=== PATIENT | female | born 1960 | race Caucasian/White ===

== ENCOUNTER → 2017-11-04 | Outpatient (CLI) | payer MEDICARE ==
[~2017-11-04] MED LIST: Apixaban PO; CARDIZEM60 MG PO; DEPAKOTE500 MG PO; DIGOXIN125 MCG PO; DIVALPROEX SOD500 M1 PO; ESCITALOPRAM OX10 MG PO; HYDROCODONE PO; IBUPROFEN800 MG PO; KEPPRA500 MG PO; LASIX20 MG PO; LEVOTHROID50 MCG PO; LEVOTHYROXINE PO; LEVOTHYROXINE112 MCG PO; LEVOXYL137 MCG PO; LISINOPRIL10 MG PO; LOPRESSOR25 MG PO; NOVOLOG100 UNIT/4 SQ; POTASSIUM CHLO10 ME1 PO; PROAIR HFA INH8.5 GM INH; TOPIRAMATE50 MG PO; TYLENOL WITH C1 EACH PO; ULTRAM 50MG50 MG PO; VITAMIN B12 PO; Z DIVALPROEX SOD PO; Z.0.AMIODARONE HCL20 PO; Z.0.FUROSEMIDE20 MG PO; Z.1.ALPRAZOLAM0.25 M PO
--- NOTE | 2017-11-04 10:36 | Diagnostic Imaging Report ---
PROCEDURE: X-RAY CHEST, TWO VIEWS COMPARISON: None. INDICATIONS: RESPIRATORY INFECTION FINDINGS: LUNGS: No consolidations or edema. PLEURA: No effusions or pneumothorax. HEART \T\ MEDIASTINUM: The heart is within normal size-limits. Tortuous thoracic aorta. BONES \T\ SOFT TISSUES: No acute findings. CONCLUSION: No acute thoracic abnormality. Chaka Castillo D.O. Dictated by: Chaka Castillo D.O. on 11/04/2017 at 10:40 Electronically approved by: Chaka Castillo D.O. on 11/04/2017 at 10:40
--- NOTE | 2017-11-04 12:20 | Diagnostic Imaging Report ---
PROCEDURE:US RETROPERITONEAL ( KIDNEY ). COMPARISON:None. INDICATIONS:UTI, OVERACTIVE BLADDER TECHNIQUE: Duran-scale and color sonographic images of the bilateral kidneys and bladder where obtained in transverse and longitudinal planes. FINDINGS: RIGHT KIDNEY: 9.2 cm, cortex 1.3 cm Cysts: None Solid masses: None Stones: 1.2 x 0.5 x 1.0 cm hyperechoic cortical focus in the mid lateral aspect. Hydronephrosis: None. Mild pelvocaliectasis. Echogenicity: Normal LEFT KIDNEY: 10.0 cm, cortex 1.8 cm Cysts: None Solid masses: None Stones: None Hydronephrosis: Mild left hydronephrosis. Echogenicity: Normal Bladder: No focal lesions. Bilateral ureteral jets are identified. Mild circumferential bladder wall thickening, which measures 0.3 cm. Prevoid bladder volume 138.2 mL. Post void bladder volume 66.8 mL CONCLUSION: 1. Normal bilateral renal size and echogenicity. 2. Mild left hydronephrosis. Mild right pelvocaliectasis. 3. 1.2 cm hyperechoic focus in the right mid lateral cortex may represent a cortical calcification (likely sequela of prior inflammation or infection), rather than a nonobstructing calculus. 4. Mild circumferential bladder wall thickening. No focal lesions. Mild post void residual. Orville Scott M.D. Dictated by: Orville Scott M.D. on 11/04/2017 at 12:24 Electronically approved by: Orville Scott M.D. on 11/04/2017 at 12:24
--- NOTE | 2017-11-04 12:22 | Diagnostic Imaging Report ---
PROCEDURE:URINARY BLADDER ULTRASOUND COMPARISON:None. INDICATIONS:UTI, OVERACTIVE BLADDER CONCLUSION: Please refer to renal ultrasound performed at the same date and time for full dictated report. Orville Scott M.D. Dictated by: Orville Scott M.D. on 11/04/2017 at 12:26 Electronically approved by: Orville Scott M.D. on 11/04/2017 at 12:26
== END ==
LOC: US 09:44
PROVIDERS: ATTEND Family Medicine
DX: J06.9 Acute upper respiratory infection, unspecified (principal); N39.0 Urinary tract infection, site not specified; N32.81 Overactive bladder
CPT/HCPCS: 71046; 76770; 76857

== ENCOUNTER → 2018-06-03 | Outpatient (CLI) | payer MEDICARE ==
--- NOTE | 2018-06-03 16:40 | Diagnostic Imaging Report ---
Examination: CT head without contrast Clinical Indication: Fall with head injury. Technique: Transaxial noncontrast images from the skull base through the vertex were obtained. Sagittal and coronal reformatted images were done. Dose modulation, iterative reconstruction, and/or weight based adjustment of the mA/kV was utilized to reduce the radiation dose to as low as reasonably achievable. Comparison: Head CT performed March 25, 2013. Findings: Scalp: No abnormalities. Bones: Intact. No fractures. No blastic or lytic lesions. Hyperostosis frontalis. Brain sulci: Appropriate for patient's age. Ventricles: Normal in size and configuration. No hydrocephalus. . Extra-axial space: No abnormalities. Parenchyma: There are new mild patchy areas of low-attenuation within subcortical and periventricular white matter, nonspecific, but could represent microvascular ischemic disease. No masses, hemorrhage, or acute or chronic cortical based vascular insults. Suprasellar region: No abnormalities. Craniocervical junction: The foramen magnum is patent. No Chiari one malformation. Incidental findings: Opacified right sphenoid sinus with adjacent osteitis, consistent with chronic sinusitis. Impression: 1. No new acute intracranial finding when compared to prior head CT performed March 25, 2013. 2. New mild chronic microvascular ischemic change. Signed by: Dr. Coral Kennedy M.D. on 06/03/2018 4:37 PM
== END ==
LOC: CT 15:08
PROVIDERS: ATTEND Family Medicine
DX: S09.90XA Unspecified injury of head, initial encounter (principal); Z79.02 Long term (current) use of antithrombotics/antiplatelets
CPT/HCPCS: 70450

== ENCOUNTER → 2018-08-04 | Outpatient (CLI) | payer MEDICARE | LOC: RAD 12:12 | PROVIDERS: ATTEND Family Medicine | DX: I80.03 Phlebitis and thrombophlebitis of superficial vessels of lower extremities, bilateral (principal) | CPT/HCPCS: 93970 ==

== ENCOUNTER 2019-08-17 15:07 | Inpatient (IN) | payer MEDICARE ==
[~2019-08-17] VITALS: Ht 162.6 cm; Wt 135.2 kg
[2019-08-17] MEDS: VANCOMYCIN 1GM/NS 250 ML 250 ML IV SCH (02:00)
--- OUTSIDE RECORDS SUMMARY | 2019-08-17 15:12 | XMS REPORT ---
[facility] Address Unknown Phone Unavailable Care Team Providers Care Wellness Assistant Name Role Phone REYMUNDO POTTS Unavailable Unavailable Payers Payer Name Policy Type Policy Number Effective Date Expiration Date Problems This patient has no known problems. Allergies, Adverse Reactions, Alerts Allergy Name Allergy Type Status Severity Reaction(s) Onset Date Inactive Date Treating Clinician Comments Iodinated Contrast- Oral and IV Dye DA Active FL 2018-03-30 00:00:00 Penicillins DA Active FL 2018-03-30 00:00:00 Shellfish DA Active FL 2018-03-30 00:00:00 iodine DA Active FL 2018-03-30 00:00:00 Iodinated Contrast Media - IV Dye DA Active FL 2016-06-10 00:00:00 Penicillins DA Active FL 2016-06-10 00:00:00 Shellfish DA Active FL 2016-06-10 00:00:00 iodine DA Active FL 2016-06-10 00:00:00 Medications This patient has no known medications. Results Test Description Test Time Test Comments Text Results Atomic Results Result Comments GLUBED 2018-07-15 20:55:00 GLUBED (test code=GLUBED) 104 mg/dL 74-106 Performed by certified hack saw operator at [facility] [place] [id number] 16:52:00* Test Item Value Reference Range Comments GLUBED (test code=GLUBED) 161 mg/dL 74-106 Performed by certified hack saw operator at [facility] [place] [id number] 11:29:00* Test Item Value Reference Range Comments GLUBED (test code=GLUBED) 133 mg/dL 74-106 Performed by certified hack saw operator at [facility] [place] [id number] 07:37:00* Test Item Value Reference Range Comments GLUBED (test code=GLUBED) 75 mg/dL 74-106 Performed by certified hack saw operator at [facility] [place] [id number] 20:55:00* Test Item Value Reference Range Comments GLUBED (test code=GLUBED) 128 mg/dL 74-106 Performed by certified hack saw operator at [facility] [place] [id number] 16:44:00* Test Item Value Reference Range Comments GLUBED (test code=GLUBED) 84 mg/dL 74-106 Performed by certified hack saw operator at [facility] [place] [id number] 12:14:00* Test Item Value Reference Range Comments GLUBED (test code=GLUBED) 89 mg/dL 74-106 Performed by certified hack saw operator at [facility] [place] [id number] 07:23:00* Test Item Value Reference Range Comments GLUBED (test code=GLUBED) 76 mg/dL 74-106 Performed by certified hack saw operator at [facility] [place] [id number] 19:55:00* Test Item Value Reference Range Comments GLUBED (test code=GLUBED) 141 mg/dL 74-106 Performed by certified hack saw operator at [facility] [place] [id number] 19:17:00* Test Item Value Reference Range Comments GLUBED (test code=GLUBED) 145 mg/dL 74-106 Performed by certified hack saw operator at [facility] [place] [id number] 11:40:00* Test Item Value Reference Range Comments GLUBED (test code=GLUBED) 126 mg/dL 74-106 Performed by certified hack saw operator at [facility] [place] [id number] 07:37:00* Test Item Value Reference Range Comments GLUBED (test code=GLUBED) 90 mg/dL 74-106 Performed by certified hack saw operator at [facility] [place] [id number] 20:52:00* Test Item Value Reference Range Comments GLUBED (test code=GLUBED) 106 mg/dL 74-106 Performed by certified hack saw operator at [facility] [place] [id number] 16:49:00* Test Item Value Reference Range Comments GLUBED (test code=GLUBED) 147 mg/dL 74-106 Performed by certified hack saw operator at [facility] [place] [id number] 10:58:00* Test Item Value Reference Range Comments GLUBED (test code=GLUBED) 126 mg/dL 74-106 Performed by certified hack saw operator at [facility] [place] COMPREHENSIVE METABOLIC [id number] 10:36:00* Test Item Value Reference Range Comments SODIUM (test code=NA) 139 mmol/L 136-145 POTASSIUM (test code=K) 4.7 mmol/L 3.5-5.1 CHLORIDE (test code=CL) 112.0 mmol/L 98-107 CARBON DIOXIDE (test code=CO2) 22.0 mmol/L 21-32 ANION GAP (test code=GAP) 9.7 10-20 GLUCOSE (test code=GLU) 99 mg/dL 74-106 BLOOD UREA NITROGEN (test code=BUN) 10 mg/dL 7-18 GLOMERULAR FILTRATION RATE (test code=GFR) > 60 mL/min >=60 Estimated GFR by using Modified MDRD formula.Chronic kidney disease is defined as either kidney damageor GFR <60 mL/min/1.73 m2 for >3 months. CREATININE (test code=CREAT) 0.80 mg/dL 0.55-1.02 Note change in reference range due to change in reagent. BUN/CREATININE RATIO (test code=BUN/CREA) 12.5 10-20 TOTAL PROTEIN (test code=PROT) 5.6 gram/dL 6.4-8.2 ALBUMIN (test code=ALB) 1.6 g/dL 3.4-5.0 GLOBULIN (test code=GLOB) 4.0 gram/dL 2.7-4.2 ALBUMIN/GLOBULIN RATIO (test code=A/G) 0.4 0.75-1.50 CALCIUM (test code=CA) 8.0 mg/dL 8.5-10.1 BILIRUBIN TOTAL (test code=BILT) 0.60 mg/dL 0.0-1.0 SGOT/AST (test code=AST) 23 IUnit/L 15-37 SGPT/ALT (test code=ALT) 18 IUnit/L 12-78 ALKALINE PHOSPHATASE TOTAL (test code=ALKP) 67 IUnit/L 45-117 Note change in reference range due to change in reagent. [id number] 10:36:00* Test Item Value Reference Range Comments MAGNESIUM (test code=MAG) 2.2 mg/dL 1.8-2.4 COMPREHENSIVE METABOLIC [id number] 10:22:00* Test Item Value Reference Range Comments SODIUM (test code=NA) 139 mmol/L 136-145 POTASSIUM (test code=K) 4.7 mmol/L 3.5-5.1 CHLORIDE (test code=CL) 112.0 mmol/L 98-107 CARBON DIOXIDE (test code=CO2) mmol/L 21-32 ANION GAP (test code=GAP) 10-20 GLUCOSE (test code=GLU) mg/dL 74-106 BLOOD UREA NITROGEN (test code=BUN) mg/dL 7-18 GLOMERULAR FILTRATION RATE (test code=GFR) mL/min >=60 CREATININE (test code=CREAT) mg/dL 0.55-1.02 BUN/CREATININE RATIO (test code=BUN/CREA) 10-20 TOTAL PROTEIN (test code=PROT) gram/dL 6.4-8.2 ALBUMIN (test code=ALB) g/dL 3.4-5.0 GLOBULIN (test code=GLOB) gram/dL 2.7-4.2 ALBUMIN/GLOBULIN RATIO (test code=A/G) 0.75-1.50 CALCIUM (test code=CA) mg/dL 8.5-10.1 BILIRUBIN TOTAL (test code=BILT) mg/dL 0.0-1.0 SGOT/AST (test code=AST) IUnit/L 15-37 SGPT/ALT (test code=ALT) IUnit/L 12-78 ALKALINE PHOSPHATASE TOTAL (test code=ALKP) IUnit/L 45-117 [id number] 10:22:00* Test Item Value Reference Range Comments MAGNESIUM (test code=MAG) mg/dL 1.8-2.4 CBC W/AUTO [id number] 09:52:00* Test Item Value Reference Range Comments WHITE BLOOD CELL (test code=WBC) 5.0 K/mm3 4.5-12.5 RED BLOOD CELL (test code=RBC) 3.71 mill/mm3 3.7-5.2 HEMOGLOBIN (test code=HGB) 12.1 gram/dL 11.5-15.5 HEMATOCRIT (test code=HCT) 39.4 % 36.0-46.0 MEAN CELL VOLUME (test code=MCV) 107.0 fL 80-98 MEAN CELL HGB (test code=MCH) 33.4 picogram 27.0-33.0 MEAN CELL HGB CONCETRATION (test code=MCHC) 31.2 gram/dL 33.0-36.0 RED CELL DISTRIBUTION WIDTH (test code=RDW) 15.8 % 11.6-16.2 RED CELL DISTRIBUTION WIDTH SD (test code=RDW-SD) 62.5 fL 37.0-51.0 PLATELET COUNT (test code=PLT) 102 K/mm3 150-450 MEAN PLATELET VOLUME (test code=MPV) 10.6 fL 6.7-11.0 NEUTROPHIL % (test code=NT%) 44.1 % 39.0-69.0 IMMATURE GRANULOCYTE % (test code=IG%) 1.0 % 0.0-5.0 LYMPHOCYTE % (test code=LY%) 42.8 % 25.0-55.0 MONOCYTE % (test code=MO%) 9.5 % 0.0-10.0 EOSINOPHIL % (test code=EO%) 2.2 % 0.0-5.0 BASOPHIL % (test code=BA%) 0.4 % 0.0-1.0 NUCLEATED RBC % (test code=NRBC%) 0.0 % 0-0 NEUTROPHIL # (test code=NT#) 2.18 K/mm3 1.8-7.7 IMMATURE GRANULOCYTE # (test code=IG#) 0.05 x10 3/uL 0-0.03 LYMPHOCYTE # (test code=LY#) 2.12 K/mm3 1.0-5.0 MONOCYTE # (test code=MO#) 0.47 K/mm3 0-0.8 EOSINOPHIL # (test code=EO#) 0.11 K/mm3 0.0-0.5 BASOPHIL # (test code=BA#) 0.02 K/mm3 0.0-0.2 NUCLEATED RBC # (test code=NRBC#) 0.00 K/mm3 0.0-0.1 MANUAL DIFF REQUIRED (test code=MDIFF) NO CBC W/AUTO [id number] 09:49:00* Test Item Value Reference Range Comments WHITE BLOOD CELL (test code=WBC) K/mm3 4.5-12.5 RED BLOOD CELL (test code=RBC) mill/mm3 3.7-5.2 HEMOGLOBIN (test code=HGB) 12.1 gram/dL 11.5-15.5 HEMATOCRIT (test code=HCT) 39.4 % 36.0-46.0 MEAN CELL VOLUME (test code=MCV) fL 80-98 MEAN CELL HGB (test code=MCH) picogram 27.0-33.0 MEAN CELL HGB CONCETRATION (test code=MCHC) gram/dL 33.0-36.0 RED CELL DISTRIBUTION WIDTH (test code=RDW) % 11.6-16.2 RED CELL DISTRIBUTION WIDTH SD (test code=RDW-SD) fL 37.0-51.0 PLATELET COUNT (test code=PLT) K/mm3 150-450 MEAN PLATELET VOLUME (test code=MPV) fL 6.7-11.0 NEUTROPHIL % (test code=NT%) % 39.0-69.0 IMMATURE GRANULOCYTE % (test code=IG%) % 0.0-5.0 LYMPHOCYTE % (test code=LY%) % 25.0-55.0 MONOCYTE % (test code=MO%) % 0.0-10.0 EOSINOPHIL % (test code=EO%) % 0.0-5.0 BASOPHIL % (test code=BA%) % 0.0-1.0 NEUTROPHIL # (test code=NT#) K/mm3 1.8-7.7 LYMPHOCYTE # (test code=LY#) K/mm3 1.0-5.0 MONOCYTE # (test code=MO#) K/mm3 0-0.8 EOSINOPHIL # (test code=EO#) K/mm3 0.0-0.5 BASOPHIL # (test code=BA#) K/mm3 0.0-0.2 [id number] 07:32:00* Test Item Value Reference Range Comments GLUBED (test code=GLUBED) 78 mg/dL 74-106 Performed by certified hack saw operator at [facility] [place] [id number] 21:00:00* Test Item Value Reference Range Comments GLUBED (test code=GLUBED) 151 mg/dL 74-106 Performed by certified hack saw operator at [facility] [place] [id number] 16:35:00* Test Item Value Reference Range Comments GLUBED (test code=GLUBED) 91 mg/dL 74-106 Performed by certified hack saw operator at [facility] [place] [id number] 11:43:00* Test Item Value Reference Range Comments GLUBED (test code=GLUBED) 101 mg/dL 74-106 Performed by certified hack saw operator at [facility] [place] CBC W/AUTO [id number] 10:25:00* Test Item Value Reference Range Comments WHITE BLOOD CELL (test code=WBC) 4.3 K/mm3 4.5-12.5 RED BLOOD CELL (test code=RBC) 3.64 mill/mm3 3.7-5.2 HEMOGLOBIN (test code=HGB) 12.1 gram/dL 11.5-15.5 HEMATOCRIT (test code=HCT) 38.9 % 36.0-46.0 MEAN CELL VOLUME (test code=MCV) 106.9 fL 80-98 MEAN CELL HGB (test code=MCH) 33.2 picogram 27.0-33.0 MEAN CELL HGB CONCETRATION (test code=MCHC) 31.1 gram/dL 33.0-36.0 RED CELL DISTRIBUTION WIDTH (test code=RDW) 15.5 % 11.6-16.2 RED CELL DISTRIBUTION WIDTH SD (test code=RDW-SD) 61.5 fL 37.0-51.0 PLATELET COUNT (test code=PLT) 87 K/mm3 150-450 MEAN PLATELET VOLUME (test code=MPV) 10.1 fL 6.7-11.0 NEUTROPHIL % (test code=NT%) 41.8 % 39.0-69.0 IMMATURE GRANULOCYTE % (test code=IG%) 1.6 % 0.0-5.0 LYMPHOCYTE % (test code=LY%) 42.3 % 25.0-55.0 MONOCYTE % (test code=MO%) 11.3 % 0.0-10.0 EOSINOPHIL % (test code=EO%) 2.3 % 0.0-5.0 BASOPHIL % (test code=BA%) 0.7 % 0.0-1.0 NUCLEATED RBC % (test code=NRBC%) 0.0 % 0-0 NEUTROPHIL # (test code=NT#) 1.81 K/mm3 1.8-7.7 IMMATURE GRANULOCYTE # (test code=IG#) 0.07 x10 3/uL 0-0.03 LYMPHOCYTE # (test code=LY#) 1.83 K/mm3 1.0-5.0 MONOCYTE # (test code=MO#) 0.49 K/mm3 0-0.8 EOSINOPHIL # (test code=EO#) 0.10 K/mm3 0.0-0.5 BASOPHIL # (test code=BA#) 0.03 K/mm3 0.0-0.2 NUCLEATED RBC # (test code=NRBC#) 0.00 K/mm3 0.0-0.1 MANUAL DIFF REQUIRED (test code=MDIFF) NO, ONLY SCAN NEEDED DIFFERENTIAL [id number] 10:25:00* Test Item Value Reference Range Comments STAIN ACCEPTABILITY (test code=STN ACCEPTABLE) STAIN ACCEPTABLE ANISOCYTOSIS (test code=ANISO) 1+ MACROCYTOSIS (test code=MACR) 1+ PLATELET ESTIMATE (test code=PLTEST) DECREASED PLATELET MORPHOLOGY (test code=PLTMORPH) CLUMPING PRESENT CBC W/AUTO [id number] 08:50:00* Test Item Value Reference Range Comments WHITE BLOOD CELL (test code=WBC) 4.3 K/mm3 4.5-12.5 RED BLOOD CELL (test code=RBC) 3.64 mill/mm3 3.7-5.2 HEMOGLOBIN (test code=HGB) 12.1 gram/dL 11.5-15.5 HEMATOCRIT (test code=HCT) 38.9 % 36.0-46.0 MEAN CELL VOLUME (test code=MCV) 106.9 fL 80-98 MEAN CELL HGB (test code=MCH) 33.2 picogram 27.0-33.0 MEAN CELL HGB CONCETRATION (test code=MCHC) 31.1 gram/dL 33.0-36.0 RED CELL DISTRIBUTION WIDTH (test code=RDW) 15.5 % 11.6-16.2 RED CELL DISTRIBUTION WIDTH SD (test code=RDW-SD) 61.5 fL 37.0-51.0 PLATELET COUNT (test code=PLT) 87 K/mm3 150-450 MEAN PLATELET VOLUME (test code=MPV) 10.1 fL 6.7-11.0 NEUTROPHIL % (test code=NT%) 41.8 % 39.0-69.0 IMMATURE GRANULOCYTE % (test code=IG%) 1.6 % 0.0-5.0 LYMPHOCYTE % (test code=LY%) 42.3 % 25.0-55.0 MONOCYTE % (test code=MO%) 11.3 % 0.0-10.0 EOSINOPHIL % (test code=EO%) 2.3 % 0.0-5.0 BASOPHIL % (test code=BA%) 0.7 % 0.0-1.0 NUCLEATED RBC % (test code=NRBC%) 0.0 % 0-0 NEUTROPHIL # (test code=NT#) 1.81 K/mm3 1.8-7.7 IMMATURE GRANULOCYTE # (test code=IG#) 0.07 x10 3/uL 0-0.03 LYMPHOCYTE # (test code=LY#) 1.83 K/mm3 1.0-5.0 MONOCYTE # (test code=MO#) 0.49 K/mm3 0-0.8 EOSINOPHIL # (test code=EO#) 0.10 K/mm3 0.0-0.5 BASOPHIL # (test code=BA#) 0.03 K/mm3 0.0-0.2 NUCLEATED RBC # (test code=NRBC#) 0.00 K/mm3 0.0-0.1 MANUAL DIFF REQUIRED (test code=MDIFF) NO, ONLY SCAN NEEDED DIFFERENTIAL [id number] 08:50:00* Test Item Value Reference Range Comments STAIN ACCEPTABILITY (test code=STN ACCEPTABLE) CABOT RINGS (test code=CAB) MORPHOLOGY COMMENT (test code=MOC) PLATELET ESTIMATE (test code=PLTEST) PLATELET MORPHOLOGY (test code=PLTMORPH) CBC W/AUTO [id number] 08:50:00* Test Item Value Reference Range Comments WHITE BLOOD CELL (test code=WBC) 4.3 K/mm3 4.5-12.5 RED BLOOD CELL (test code=RBC) 3.64 mill/mm3 3.7-5.2 HEMOGLOBIN (test code=HGB) 12.1 gram/dL 11.5-15.5 HEMATOCRIT (test code=HCT) 38.9 % 36.0-46.0 MEAN CELL VOLUME (test code=MCV) 106.9 fL 80-98 MEAN CELL HGB (test code=MCH) 33.2 picogram 27.0-33.0 MEAN CELL HGB CONCETRATION (test code=MCHC) 31.1 gram/dL 33.0-36.0 RED CELL DISTRIBUTION WIDTH (test code=RDW) 15.5 % 11.6-16.2 RED CELL DISTRIBUTION WIDTH SD (test code=RDW-SD) 61.5 fL 37.0-51.0 PLATELET COUNT (test code=PLT) 87 K/mm3 150-450 MEAN PLATELET VOLUME (test code=MPV) 10.1 fL 6.7-11.0 NEUTROPHIL % (test code=NT%) 41.8 % 39.0-69.0 IMMATURE GRANULOCYTE % (test code=IG%) 1.6 % 0.0-5.0 LYMPHOCYTE % (test code=LY%) 42.3 % 25.0-55.0 MONOCYTE % (test code=MO%) 11.3 % 0.0-10.0 EOSINOPHIL % (test code=EO%) 2.3 % 0.0-5.0 BASOPHIL % (test code=BA%) 0.7 % 0.0-1.0 NUCLEATED RBC % (test code=NRBC%) 0.0 % 0-0 NEUTROPHIL # (test code=NT#) 1.81 K/mm3 1.8-7.7 IMMATURE GRANULOCYTE # (test code=IG#) 0.07 x10 3/uL 0-0.03 LYMPHOCYTE # (test code=LY#) 1.83 K/mm3 1.0-5.0 MONOCYTE # (test code=MO#) 0.49 K/mm3 0-0.8 EOSINOPHIL # (test code=EO#) 0.10 K/mm3 0.0-0.5 BASOPHIL # (test code=BA#) 0.03 K/mm3 0.0-0.2 NUCLEATED RBC # (test code=NRBC#) 0.00 K/mm3 0.0-0.1 MANUAL DIFF REQUIRED (test code=MDIFF) NO, ONLY SCAN NEEDED DIFFERENTIAL [id number] 08:50:00* Test Item Value Reference Range Comments STAIN ACCEPTABILITY (test code=STN ACCEPTABLE) CABOT RINGS (test code=CAB) MORPHOLOGY COMMENT (test code=MOC) PLATELET ESTIMATE (test code=PLTEST) PLATELET MORPHOLOGY (test code=PLTMORPH) CBC W/AUTO [id number] 08:50:00* Test Item Value Reference Range Comments WHITE BLOOD CELL (test code=WBC) 4.3 K/mm3 4.5-12.5 RED BLOOD CELL (test code=RBC) 3.64 mill/mm3 3.7-5.2 HEMOGLOBIN (test code=HGB) 12.1 gram/dL 11.5-15.5 HEMATOCRIT (test code=HCT) 38.9 % 36.0-46.0 MEAN CELL VOLUME (test code=MCV) 106.9 fL 80-98 MEAN CELL HGB (test code=MCH) 33.2 picogram 27.0-33.0 MEAN CELL HGB CONCETRATION (test code=MCHC) 31.1 gram/dL 33.0-36.0 RED CELL DISTRIBUTION WIDTH (test code=RDW) 15.5 % 11.6-16.2 RED CELL DISTRIBUTION WIDTH SD (test code=RDW-SD) 61.5 fL 37.0-51.0 PLATELET COUNT (test code=PLT) 87 K/mm3 150-450 MEAN PLATELET VOLUME (test code=MPV) 10.1 fL 6.7-11.0 NEUTROPHIL % (test code=NT%) 41.8 % 39.0-69.0 IMMATURE GRANULOCYTE % (test code=IG%) 1.6 % 0.0-5.0 LYMPHOCYTE % (test code=LY%) 42.3 % 25.0-55.0 MONOCYTE % (test code=MO%) 11.3 % 0.0-10.0 EOSINOPHIL % (test code=EO%) 2.3 % 0.0-5.0 BASOPHIL % (test code=BA%) 0.7 % 0.0-1.0 NUCLEATED RBC % (test code=NRBC%) 0.0 % 0-0 NEUTROPHIL # (test code=NT#) 1.81 K/mm3 1.8-7.7 IMMATURE GRANULOCYTE # (test code=IG#) 0.07 x10 3/uL 0-0.03 LYMPHOCYTE # (test code=LY#) 1.83 K/mm3 1.0-5.0 MONOCYTE # (test code=MO#) 0.49 K/mm3 0-0.8 EOSINOPHIL # (test code=EO#) 0.10 K/mm3 0.0-0.5 BASOPHIL # (test code=BA#) 0.03 K/mm3 0.0-0.2 NUCLEATED RBC # (test code=NRBC#) 0.00 K/mm3 0.0-0.1 MANUAL DIFF REQUIRED (test code=MDIFF) NO, ONLY SCAN NEEDED DIFFERENTIAL [id number] 08:50:00* Test Item Value Reference Range Comments STAIN ACCEPTABILITY (test code=STN ACCEPTABLE) MORPHOLOGY COMMENT (test code=MOC) PLATELET ESTIMATE (test code=PLTEST) PLATELET MORPHOLOGY (test code=PLTMORPH) CBC W/AUTO [id number] 08:50:00* Test Item Value Reference Range Comments WHITE BLOOD CELL (test code=WBC) 4.3 K/mm3 4.5-12.5 RED BLOOD CELL (test code=RBC) 3.64 mill/mm3 3.7-5.2 HEMOGLOBIN (test code=HGB) 12.1 gram/dL 11.5-15.5 HEMATOCRIT (test code=HCT) 38.9 % 36.0-46.0 MEAN CELL VOLUME (test code=MCV) 106.9 fL 80-98 MEAN CELL HGB (test code=MCH) 33.2 picogram 27.0-33.0 MEAN CELL HGB CONCETRATION (test code=MCHC) 31.1 gram/dL 33.0-36.0 RED CELL DISTRIBUTION WIDTH (test code=RDW) 15.5 % 11.6-16.2 RED CELL DISTRIBUTION WIDTH SD (test code=RDW-SD) 61.5 fL 37.0-51.0 PLATELET COUNT (test code=PLT) 87 K/mm3 150-450 MEAN PLATELET VOLUME (test code=MPV) 10.1 fL 6.7-11.0 NEUTROPHIL % (test code=NT%) 41.8 % 39.0-69.0 IMMATURE GRANULOCYTE % (test code=IG%) 1.6 % 0.0-5.0 LYMPHOCYTE % (test code=LY%) 42.3 % 25.0-55.0 MONOCYTE % (test code=MO%) 11.3 % 0.0-10.0 EOSINOPHIL % (test code=EO%) 2.3 % 0.0-5.0 BASOPHIL % (test code=BA%) 0.7 % 0.0-1.0 NUCLEATED RBC % (test code=NRBC%) 0.0 % 0-0 NEUTROPHIL # (test code=NT#) 1.81 K/mm3 1.8-7.7 IMMATURE GRANULOCYTE # (test code=IG#) 0.07 x10 3/uL 0-0.03 LYMPHOCYTE # (test code=LY#) 1.83 K/mm3 1.0-5.0 MONOCYTE # (test code=MO#) 0.49 K/mm3 0-0.8 EOSINOPHIL # (test code=EO#) 0.10 K/mm3 0.0-0.5 BASOPHIL # (test code=BA#) 0.03 K/mm3 0.0-0.2 NUCLEATED RBC # (test code=NRBC#) 0.00 K/mm3 0.0-0.1 MANUAL DIFF REQUIRED (test code=MDIFF) NO, ONLY SCAN NEEDED DIFFERENTIAL [id number] 08:50:00* Test Item Value Reference Range Comments STAIN ACCEPTABILITY (test code=STN ACCEPTABLE) CABOT RINGS (test code=CAB) MORPHOLOGY COMMENT (test code=MOC) PLATELET ESTIMATE (test code=PLTEST) PLATELET MORPHOLOGY (test code=PLTMORPH) COMPREHENSIVE METABOLIC [id number] 08:46:00* Test Item Value Reference Range Comments SODIUM (test code=NA) 143 mmol/L 136-145 POTASSIUM (test code=K) 3.8 mmol/L 3.5-5.1 CHLORIDE (test code=CL) 108.0 mmol/L 98-107 CARBON DIOXIDE (test code=CO2) 31.0 mmol/L 21-32 ANION GAP (test code=GAP) 7.8 10-20 GLUCOSE (test code=GLU) 70 mg/dL 74-106 BLOOD UREA NITROGEN (test code=BUN) 11 mg/dL 7-18 GLOMERULAR FILTRATION RATE (test code=GFR) > 60 mL/min >=60 Estimated GFR by using Modified MDRD formula.Chronic kidney disease is defined as either kidney damageor GFR <60 mL/min/1.73 m2 for >3 months. CREATININE (test code=CREAT) 0.60 mg/dL 0.55-1.02 Note change in reference range due to change in reagent. BUN/CREATININE RATIO (test code=BUN/CREA) 18.3 10-20 TOTAL PROTEIN (test code=PROT) 5.6 gram/dL 6.4-8.2 ALBUMIN (test code=ALB) 2.0 g/dL 3.4-5.0 GLOBULIN (test code=GLOB) 3.6 gram/dL 2.7-4.2 ALBUMIN/GLOBULIN RATIO (test code=A/G) 0.6 0.75-1.50 CALCIUM (test code=CA) 8.3 mg/dL 8.5-10.1 BILIRUBIN TOTAL (test code=BILT) 0.60 mg/dL 0.0-1.0 SGOT/AST (test code=AST) 26 IUnit/L 15-37 SGPT/ALT (test code=ALT) 17 IUnit/L 12-78 ALKALINE PHOSPHATASE TOTAL (test code=ALKP) 68 IUnit/L 45-117 Note change in reference range due to change in reagent. [id number] 08:46:00* Test Item Value Reference Range Comments MAGNESIUM (test code=MAG) 2.2 mg/dL 1.8-2.4 COMPREHENSIVE METABOLIC [id number] 08:31:00* Test Item Value Reference Range Comments SODIUM (test code=NA) 143 mmol/L 136-145 POTASSIUM (test code=K) 3.8 mmol/L 3.5-5.1 CHLORIDE (test code=CL) 108.0 mmol/L 98-107 CARBON DIOXIDE (test code=CO2) mmol/L 21-32 ANION GAP (test code=GAP) 10-20 GLUCOSE (test code=GLU) mg/dL 74-106 BLOOD UREA NITROGEN (test code=BUN) mg/dL 7-18 GLOMERULAR FILTRATION RATE (test code=GFR) mL/min >=60 CREATININE (test code=CREAT) mg/dL 0.55-1.02 BUN/CREATININE RATIO (test code=BUN/CREA) 10-20 TOTAL PROTEIN (test code=PROT) gram/dL 6.4-8.2 ALBUMIN (test code=ALB) g/dL 3.4-5.0 GLOBULIN (test code=GLOB) gram/dL 2.7-4.2 ALBUMIN/GLOBULIN RATIO (test code=A/G) 0.75-1.50 CALCIUM (test code=CA) mg/dL 8.5-10.1 BILIRUBIN TOTAL (test code=BILT) mg/dL 0.0-1.0 SGOT/AST (test code=AST) IUnit/L 15-37 SGPT/ALT (test code=ALT) IUnit/L 12-78 ALKALINE PHOSPHATASE TOTAL (test code=ALKP) IUnit/L 45-117 [id number] 08:31:00* Test Item Value Reference Range Comments MAGNESIUM (test code=MAG) mg/dL 1.8-2.4 [id number] 07:36:00* Test Item Value Reference Range Comments GLUBED (test code=GLUBED) 73 mg/dL 74-106 Performed by certified hack saw operator at [facility] [place] [id number] 20:25:00* Test Item Value Reference Range Comments GLUBED (test code=GLUBED) 159 mg/dL 74-106 Performed by certified hack saw operator at [facility] [place] [id number] 16:41:00* Test Item Value Reference Range Comments GLUBED (test code=GLUBED) 102 mg/dL 74-106 Performed by certified hack saw operator at [facility] [place] [id number] 11:12:00* Test Item Value Reference Range Comments GLUBED (test code=GLUBED) 151 mg/dL 74-106 Performed by certified hack saw operator at [facility] [place] [id number] 08:10:00* Test Item Value Reference Range Comments GLUBED (test code=GLUBED) 75 mg/dL 74-106 Performed by certified hack saw operator at [facility] [place] [id number] 20:28:00* Test Item Value Reference Range Comments GLUBED (test code=GLUBED) 123 mg/dL 74-106 Performed by certified hack saw operator at [facility] [place] [id number] 17:16:00* Test Item Value Reference Range Comments GLUBED (test code=GLUBED) 108 mg/dL 74-106 Performed by certified hack saw operator at [facility] [place] VALPROIC ACID (DEPAKENE)2018-07-09 17:13:00* Test Item Value Reference Range Comments VALPROIC ACID (DEPAKENE) (test code=VALP) 79.0 mcg/mL 50.0-100.0 [id number] 11:44:00* Test Item Value Reference Range Comments GLUBED (test code=GLUBED) 120 mg/dL 74-106 Performed by certified hack saw operator at [facility] [place] CBC W/AUTO [id number] 08:04:00* Test Item Value Reference Range Comments WHITE BLOOD CELL (test code=WBC) 5.6 K/mm3 4.5-12.5 RED BLOOD CELL (test code=RBC) 3.85 mill/mm3 3.7-5.2 HEMOGLOBIN (test code=HGB) 12.8 gram/dL 11.5-15.5 HEMATOCRIT (test code=HCT) 41.2 % 36.0-46.0 MEAN CELL VOLUME (test code=MCV) 107.0 fL 80-98 MEAN CELL HGB (test code=MCH) 33.2 picogram 27.0-33.0 MEAN CELL HGB CONCETRATION (test code=MCHC) 31.1 gram/dL 33.0-36.0 RED CELL DISTRIBUTION WIDTH (test code=RDW) 15.9 % 11.6-16.2 RED CELL DISTRIBUTION WIDTH SD (test code=RDW-SD) 62.9 fL 37.0-51.0 PLATELET COUNT (test code=PLT) 100 K/mm3 150-450 MEAN PLATELET VOLUME (test code=MPV) 9.8 fL 6.7-11.0 NEUTROPHIL % (test code=NT%) 48.3 % 39.0-69.0 IMMATURE GRANULOCYTE % (test code=IG%) 0.7 % 0.0-5.0 LYMPHOCYTE % (test code=LY%) 38.9 % 25.0-55.0 MONOCYTE % (test code=MO%) 10.5 % 0.0-10.0 EOSINOPHIL % (test code=EO%) 1.4 % 0.0-5.0 BASOPHIL % (test code=BA%) 0.2 % 0.0-1.0 NUCLEATED RBC % (test code=NRBC%) 0.0 % 0-0 NEUTROPHIL # (test code=NT#) 2.70 K/mm3 1.8-7.7 IMMATURE GRANULOCYTE # (test code=IG#) 0.04 x10 3/uL 0-0.03 LYMPHOCYTE # (test code=LY#) 2.18 K/mm3 1.0-5.0 MONOCYTE # (test code=MO#) 0.59 K/mm3 0-0.8 EOSINOPHIL # (test code=EO#) 0.08 K/mm3 0.0-0.5 BASOPHIL # (test code=BA#) 0.01 K/mm3 0.0-0.2 NUCLEATED RBC # (test code=NRBC#) 0.00 K/mm3 0.0-0.1 MANUAL DIFF REQUIRED (test code=MDIFF) NO [id number] 07:40:00* Test Item Value Reference Range Comments GLUBED (test code=GLUBED) 100 mg/dL 74-106 Performed by certified hack saw operator at [facility] [place] COMPREHENSIVE METABOLIC [id number] 05:30:00* Test Item Value Reference Range Comments SODIUM (test code=NA) 140 mmol/L 136-145 POTASSIUM (test code=K) 3.9 mmol/L 3.5-5.1 CHLORIDE (test code=CL) 108.0 mmol/L 98-107 CARBON DIOXIDE (test code=CO2) 20.0 mmol/L 21-32 ANION GAP (test code=GAP) 15.9 10-20 GLUCOSE (test code=GLU) 72 mg/dL 74-106 BLOOD UREA NITROGEN (test code=BUN) 17 mg/dL 7-18 GLOMERULAR FILTRATION RATE (test code=GFR) 46 mL/min >=60 Estimated GFR by using Modified MDRD formula.Chronic kidney disease is defined as either kidney damageor GFR <60 mL/min/1.73 m2 for >3 months. CREATININE (test code=CREAT) 1.20 mg/dL 0.55-1.02 Note change in reference range due to change in reagent. BUN/CREATININE RATIO (test code=BUN/CREA) 14.4 10-20 TOTAL PROTEIN (test code=PROT) 6.5 gram/dL 6.4-8.2 ALBUMIN (test code=ALB) 2.1 g/dL 3.4-5.0 GLOBULIN (test code=GLOB) 4.4 gram/dL 2.7-4.2 ALBUMIN/GLOBULIN RATIO (test code=A/G) 0.5 0.75-1.50 CALCIUM (test code=CA) 8.1 mg/dL 8.5-10.1 BILIRUBIN TOTAL (test code=BILT) 0.90 mg/dL 0.0-1.0 SGOT/AST (test code=AST) 30 IUnit/L 15-37 SGPT/ALT (test code=ALT) 20 IUnit/L 12-78 ALKALINE PHOSPHATASE TOTAL (test code=ALKP) 76 IUnit/L 45-117 Note change in reference range due to change in reagent. COMPREHENSIVE METABOLIC [id number] 05:25:00* Test Item Value Reference Range Comments SODIUM (test code=NA) 140 mmol/L 136-145 POTASSIUM (test code=K) 3.9 mmol/L 3.5-5.1 CHLORIDE (test code=CL) 108.0 mmol/L 98-107 CARBON DIOXIDE (test code=CO2) mmol/L 21-32 ANION GAP (test code=GAP) 10-20 GLUCOSE (test code=GLU) mg/dL 74-106 BLOOD UREA NITROGEN (test code=BUN) mg/dL 7-18 GLOMERULAR FILTRATION RATE (test code=GFR) mL/min >=60 CREATININE (test code=CREAT) mg/dL 0.55-1.02 BUN/CREATININE RATIO (test code=BUN/CREA) 10-20 TOTAL PROTEIN (test code=PROT) gram/dL 6.4-8.2 ALBUMIN (test code=ALB) g/dL 3.4-5.0 GLOBULIN (test code=GLOB) gram/dL 2.7-4.2 ALBUMIN/GLOBULIN RATIO (test code=A/G) 0.75-1.50 CALCIUM (test code=CA) mg/dL 8.5-10.1 BILIRUBIN TOTAL (test code=BILT) mg/dL 0.0-1.0 SGOT/AST (test code=AST) IUnit/L 15-37 SGPT/ALT (test code=ALT) IUnit/L 12-78 ALKALINE PHOSPHATASE TOTAL (test code=ALKP) IUnit/L 45-117 [id number] 04:59:00* Test Item Value Reference Range Comments TROPONIN-I (test code=TROPI) <0.015 ng/mL 0-0.045 COMMENTS TO [employer]: COLLECT 3 HOURS AFTER PREVIOUS [id number] 01:45:00* Test Item Value Reference Range Comments DIGOXIN (test code=DIG) 1.3 ng/mL 0.90-2.0 NOTE: Spironolactone interference may cause a decrease inreported Digoxin results of 11-30 %. [id number] 01:31:00* Test Item Value Reference Range Comments TROPONIN-I (test code=TROPI) <0.015 ng/mL 0-0.045 COMMENTS TO [employer]: COLLECT 3 HOURS AFTER PREVIOUS SAMPLEB-TYPE NATRIURETIC [id number] 20:16:00* Test Item Value Reference Range Comments B-TYPE NATRIURETIC PEPTIDE (test code=BNP) 131 pgram/mL 0-100 BASIC METABOLIC [id number] 18:20:00* Test Item Value Reference Range Comments SODIUM (test code=NA) 138 mmol/L 136-145 POTASSIUM (test code=K) 4.1 mmol/L 3.5-5.1 CHLORIDE (test code=CL) 107.0 mmol/L 98-107 CARBON DIOXIDE (test code=CO2) 20.0 mmol/L 21-32 ANION GAP (test code=GAP) 15.1 10-20 GLUCOSE (test code=GLU) 103 mg/dL 74-106 BLOOD UREA NITROGEN (test code=BUN) 16 mg/dL 7-18 GLOMERULAR FILTRATION RATE (test code=GFR) 51 mL/min >=60 Estimated GFR by using Modified MDRD formula.Chronic kidney disease is defined as either kidney damageor GFR <60 mL/min/1.73 m2 for >3 months. CREATININE (test code=CREAT) 1.10 mg/dL 0.55-1.02 Note change in reference range due to change in reagent. BUN/CREATININE RATIO (test code=BUN/CREA) 15.0 10-20 CALCIUM (test code=CA) 8.6 mg/dL 8.5-10.1 [id number] 18:20:00* Test Item Value Reference Range Comments TROPONIN-I (test code=TROPI) <0.015 ng/mL 0-0.045 VALPROIC ACID (DEPAKENE)2018-07-08 18:20:00* Test Item Value Reference Range Comments VALPROIC ACID (DEPAKENE) (test code=VALP) 114.0 mcg/mL 50.0-100.0 BASIC METABOLIC [id number] 18:02:00* Test Item Value Reference Range Comments SODIUM (test code=NA) 138 mmol/L 136-145 POTASSIUM (test code=K) 4.1 mmol/L 3.5-5.1 CHLORIDE (test code=CL) 107.0 mmol/L 98-107 CARBON DIOXIDE (test code=CO2) mmol/L 21-32 ANION GAP (test code=GAP) 10-20 GLUCOSE (test code=GLU) mg/dL 74-106 BLOOD UREA NITROGEN (test code=BUN) mg/dL 7-18 GLOMERULAR FILTRATION RATE (test code=GFR) mL/min >=60 CREATININE (test code=CREAT) mg/dL 0.55-1.02 BUN/CREATININE RATIO (test code=BUN/CREA) 10-20 CALCIUM (test code=CA) mg/dL 8.5-10.1 [id number] 18:02:00* Test Item Value Reference Range Comments TROPONIN-I (test code=TROPI) ng/mL 0-0.045 VALPROIC ACID (DEPAKENE)2018-07-08 18:02:00* Test Item Value Reference Range Comments VALPROIC ACID (DEPAKENE) (test code=VALP) mcg/mL 50.0-100.0 CBC W/O [id number] 17:12:00* Test Item Value Reference Range Comments WHITE BLOOD CELL (test code=WBC) 7.1 K/mm3 4.5-12.5 RED BLOOD CELL (test code=RBC) 4.23 mill/mm3 3.7-5.2 HEMOGLOBIN (test code=HGB) 14.3 gram/dL 11.5-15.5 HEMATOCRIT (test code=HCT) 44.3 % 36.0-46.0 MEAN CELL VOLUME (test code=MCV) 107.3 fL 80-98 MEAN CELL HGB (test code=MCH) 34.0 picogram 27.0-33.0 MEAN CELL HGB CONCETRATION (test code=MCHC) 31.7 gram/dL 33.0-36.0 RED CELL DISTRIBUTION WIDTH (test code=RDW) 15.9 % 11.6-16.2 PLATELET COUNT (test code=PLT) 102 K/mm3 150-450 MEAN PLATELET VOLUME (test code=MPV) 10.1 fL 6.7-11.0 CBC W/O [id number] 17:10:00* Test Item Value Reference Range Comments WHITE BLOOD CELL (test code=WBC) K/mm3 4.5-12.5 RED BLOOD CELL (test code=RBC) mill/mm3 3.7-5.2 HEMOGLOBIN (test code=HGB) 14.3 gram/dL 11.5-15.5 HEMATOCRIT (test code=HCT) 44.3 % 36.0-46.0 MEAN CELL VOLUME (test code=MCV) fL 80-98 MEAN CELL HGB (test code=MCH) picogram 27.0-33.0 MEAN CELL HGB CONCETRATION (test code=MCHC) gram/dL 33.0-36.0 RED CELL DISTRIBUTION WIDTH (test code=RDW) % 11.6-16.2 PLATELET COUNT (test code=PLT) K/mm3 150-450 MEAN PLATELET VOLUME (test code=MPV) fL 6.7-11.0 - CT C-SPINE W/O [id number] 15:58:00 Name: LUCAS BOYD [facility] : 1960 Age/S: 57 / F [address] [facility] Unit #: [id number] Loc: [place] [address] Phys: Rene Coronado MD Acct: [id number] Dis Date: Status: REG ER PHONE #: [phone] Exam Date: 07/08/2018 1550 FAX #: [phone] Reason: Neck Pain EXAMS: CPT CODE: [id number] CT C-SPINE W/O CONTRAST 19206 REASON FOR EXAM: Neck Pain EXAM ORDER DATE: 07/08/2018 1:54 PM Ordering M.Doni.: Rene Coronado MD PROCEDURE: - CT C-SPINE W/O CONTRAST FINDINGS: CT images of the cervical spine were obtained without IV contrast at 2.5mm. Reconstructed coronal and sagittal images were also provided. Dose modulation, iterative reconstruction, and/or weight based adjustment of the MA/KV was utilized to reduce the radiation dose to as low as reasonably achievable. The osseous structures are intact. The central canal is patent. The disc spaces are maintained. IMPRESSION: Unremarkable cervical spine. at 155 Reported and signed by: Jose M Wright M.D. CC: Rene Coronado MD Technologist:NIXON CRUZ RT(R); Ceci V CTDI: DLP: Trnscb Date/Time: 07/08/2018 (1558) t.SDR.VTL Orig Print D/T: S: 07/08/2018 (1601) CTDI: DLP: PAGE 1 Signed Report - CT HEAD/BRAIN W/O [id number] 15:53:00 Name: LUCAS BOYD [facility] : 1960 Age/S: 57 / F [address] [facility]: [id number] Loc: [place] [address] Phys: Rene Coronado MD Acct: [id number] Dis Date: Status: REG ER PHONE #: [phone] Exam Date: 07/08/2018 1550 FAX #: [phone] Reason: HEADACHE EXAMS: CPT CODE: [id number] CT HEAD/BRAIN W/O CONT [id number] REASON FOR EXAM: HEADACHE EXAM ORDER DATE: 07/08/2018 1:54 PM Ordering M.DDavi: Rene Coronado MD PROCEDURE: - CT HEAD/BRAIN W/O CONT COMPARISON: 03/30/2018 FINDINGS: CT images of the brain were obtained without IV contrast. Dose modulation, iterative reconstruction, and/or weight based adjustment of the MA/KV was utilized to reduce the radiation dose to as low as reasonably achievable. The brain parenchyma is within normal limits. The dejesus-white matter delineation is unremarkable. The ventricles, cisterns, and sulci are minimally prominent. There is no evidence of hemorrhage, mass, mass effect. There is no evidence of acute or old infarct. The calvarium is intact. IMPRESSION: Unremarkable brain. at 1553 Reported and signed by: Jose M Wright M.D. CC: Rene Coronado MD Technologist:NIXON CRUZ RT(R); Ceci V CTDI: DLP: Trnscb Date/Time: 07/08/2018 (1553) Vira.VTL Orig Print D/T: S: 07/08/2018 (8207) CTDI: DLP: PAGE 1 Signed Report - XR FEMUR MIN 2 VWS [id number] 15:31:00 FAX: Rene Coronado MD [phone] [place]: B St: REG Name: LUCAS LINDSAY [facility] : [birth year] Age/S: 57/F [address] [facility] Unit #: [id number] Loc: [place] [address] Phys: Rene Coronado MD Acct: [id number] Dis Date: Status: REG ER PHONE #: [phone] Exam Date: 07/08/2018 1531 FAX #: [phone] Reason: THIGH PAIN EXAMS: CPT CODE: [id number] XR FEMUR MIN 2 [place] [address] REASON FOR EXAM: THIGH PAIN EXAM ORDER DATE: 07/08/2018 1:54 PM Ordering MRosalva: Rene Coronado MD PROCEDURE: - XR FEMUR MIN 2 VWS LT FINDINGS: 5 views of the left femur were obtained. The osseous structures are unremarkable in size and shape. The joint spaces are maintained. No evidence of fracture. There is normal alignment of the le ft hip joint IMPRESSION: Unremarkable left femur El ectronically Signed by Nancy Wright on 07/08/2018 at 1531 Reported and signed by: Jose M Wright M.D. CC: Rene Coronado MD Technologist: Dolly JohnsonTDavi(R); Brant Wei RT(R); ... Trnscrd Date/Time/By: 07/08/2018 (1531) : By: Britt GONZALEZL Orig Print D/T: S: 07/08/2018 (1534) LUCINA COATES 1 Signed Report - XR FEMUR MIN 2 VWS [id number] 15:31:00 FAX: Rene Coronado MD [phone] [place]: St: REG Name: LUCAS LINDSAY [facility] : [birth year] Age/S: 57/F [address] [facility] Unit #: [id number] Loc: [place] [address] Phys: Rene Coronado MD Acct: [id number] Dis Date: Status: REG ER PHONE #: [phone] Exam Date: 07/08/2018 1531 FAX #: [phone] Reason: THIGH PAIN EXAMS: CPT CODE: [id number] XR FEMUR MIN 2 [place] [address] REASON FOR EXAM: THIGH PAIN EXAM ORDER DATE: 07/08/2018 1:54 PM Ordering M.DDavi: Rene Coronado MD PROCEDURE: - XR FEMUR MIN 2 VWS RT FINDINGS: 4 views of the right femur were obtained. The osseous structures are unremarkable in size and shape. The joint spaces are maintained. No evidence of fracture. There is normal alignment of the ri ght hip joint IMPRESSION: Unremarkable right femur E lectronically Signed by Nancy Wright on 07/08/2018 at 1531 Reported and signed by: Jose M Wright M.D. CC: Rene Coronado MD Technologist: Dolly Mays(R); Murray Wei RT(R); ... Trnscrd Date/Time/By: 07/08/2018 (1531) : By: theresa WOODVTL Orig Print D/T: S: 07/08/2018 (1534) P AGE 1 Signed Report - XR HIP W PEL BI MIN5 [id number] 15:24:00 FAX: Rene Coronado MD [phone] [place]: B St: REG Name: Yen SOLANGECORINARachael WEST [facility] : [birth year] Age/S: 57/F [address] Unit #: [id number] Loc: [place] [address] Phys: Rene Coronado MD Acct: [id number] Dis Date: Status: REG ER PHONE #: [phone] Exam Date: 07/08/2018 1531 FAX #: [phone] Reason: HIP PAIN EXAMS: CPT CODE: [id number] XR HIP W PEL BI MIN5 VW 05790 REASON FOR EXAM: HIP PAIN EXAM ORDER DATE: 07/08/2018 1:54 PM Virginia brar M.D.: Rene Coronado MD PROCEDURE: - XR HIP W PEL BI MIN5 VW FINDINGS: 5 views of the bilateral hips were obtained. The osse ous structures are unremarkable in size and shape. The joint spaces are maintained. No evidence of fracture. IMPRESSION: Paula wright bilateral hips Electronically Signed by Nancy Wright on 9 at 1524 Reported and signed by: Jose M Wright M.D. CC: Rene Coronado MD Techn ologist: Dolly JohnsonTDavi(R); Kiera HEATON(R); ... Trnscrd Date/Jaison e/By: 07/08/2018 (1524) : By: TezL Orig Print D/T: S: 07/08/2018 (1532) PAGE 1 Signed Report - XR KNEE 4 + V [id number] 15:23:00 FAX: Rene Coronado MD [phone] [place]: B St: REG Name: Yen AYERSJacquelineLUCAS WEST [facility] : [birth year] Age/S: 57/F [address] Unit #: [id number] Loc: [place] [address] Phys: Rene Coronado MD Acct: [id number] Dis Date: Status: REG ER PHONE #: [phone] Exam Date: 07/08/2018 1531 FAX #: [phone] Reason: KNEE PAIN EXAMS: CPT CODE: [id number] XR KNEE 4 + [place] BI [address] REASON FOR EXAM: KNEE PAIN EXAM ORDER DATE: 07/08/2018 1:54 PM Ordering M.D.: Rene Coronado MD PROCEDURE: - XR KNEE 4 + V BI FINDINGS: 6 views of the bilateral knees were obtained. The osseous structures are unremarkable in size and shape aside from osteophytes in the medial and lateral compartments. Moderate narrowing of the medial and lateral compartments. No evidence of fracture. No evidence of joint ef fusion. The patellae are intact IMPRESSION: Moderate degenerati ve changes with narrowing of the medial and lateral compartments associa sly with osteophytes slightly more pronounced on the right E lectronically Signed by Nancy Wright on 07/08/2018 at 1523 Reported and signed by: Jose M Wright M.D. CC: Rene Coronado MD Technologist: Dolly JohnsonTDavi(R); Kiera Wei RT(R); ... Trnscrd Date/Time/By: 07/08/2018 (1523) : By: Vira TomlinsonVTL Orig Print D/T: S: 07/08/2018 (1532) PAGE 1 Signed Report - XR CHEST 1 [id number] 14:46:00 FAX: Rene Coronado MD [phone] [place]: B St: PRE Name: LUCAS LINDSAY [facility] : [birth year] Age/S: 57/F [address] Unit #: [id number] Loc: [place] [address] Phys: Rene Coronado MD Acct: [id number] Dis Date: Status: PRE ER PHONE #: [phone] Exam Date: 07/08/2018 1430 FAX #: [phone] Reason: CHEST PAIN EXAMS: CPT CODE: [id number] XR CHEST 1 V 32021 REASON FOR EXAM: CHEST PAIN EXAM ORDER DATE: 07/08/2018 1:54 PM Ordering M.Wilson: Rene Coronado MD PROCEDURE: - XR CHEST 1 V COMPARISON: 03/31/2018 FINDINGS: Portable AP frontal view of the chest ob tained at 2:30 PM shows patchy atelectasis of the right base. There is no evidence of effusion. The heart size is within normal limits. Pulmonary vasculatures are unremarkable. IMPRESSION: No active diseas e. at 7293 Reported and signed by: Jose M Wright M.D. C C: Rene Coronado MD Technologist: Dolly Mays(R) Trnscrd Date/Time/By: 07/08/2018 (4670) : By: TezL Orig Print D/T: S: 07/08/2018 (2638) PAGE 1 Signed Report - XR TIBIA/FIBULA 2 V [id number] 14:45:00 FAX: Rene Coronado MD [phone] [place]: B St: PRE Name: LUCAS LINDSAY [facility] : [birth year] Age/S: 57/F [address] Unit #: [id number] Loc: [place] [address] Phys: Rene Coronado MD Acct: [id number] Dis Date: Status: PRE ER PHONE #: [phone] Exam Date: 07/08/2018 1431 FAX #: [phone] Reason: LEG PAIN EXAMS: CPT CODE: [id number] XR TIBIA/FIBULA 2 V RT [address] REASON FOR EXAM: LEG PAIN EXAM ORDER DATE: 07/08/2018 1:54 PM Virginia brar M.D.: Rene Coronado MD PROCEDURE: - XR TIBIA/FIBULA 2 V R T FINDINGS: 4 views of the right lower extremity were obtained. Th e osseous structures are unremarkable in size and shape. The joint s paces are maintained. No evidence of fracture. The right knee joint and a nkle joint are grossly intact IMPRESSION: Unremarkable right tib ia and fibula at 4208 Reported and signed by: Jose M Wright M.D. CC: Rene Coronado MD Technologist: Dolly Mays(Cassandra) Trnscrd Date/Time/By: 07/08/2018 (8460) : By: AnaliliaVTL Orig Print D/T: S: 07/08/2018 (6519) PAGE [address] BRAIN [id number] 16:34:00 [place] [address] Patient Name: LUCAS BOYD MR #: [id number] : 1960 Age/Sex: 57/F Req #: [id number] Adm Physician: Ordered by: REYMUNDO POTTS MD Report #: [id number] Location: CT Room/Bed: Procedure: [id number] CT/ CT BRAIN WO Exam Date: 06/03/18 Exam Time: 1550 REPORT STATUS: Signed Examination: CT head without contrast Clinical Indication: Fall with head injury. Technique: Transaxial noncontrast images from the skull base through the vertex were o btained. Sagittal and coronal reformatted images were done. Dose modulation, i terative reconstruction, and/or weight based adjustment of the mA/kV was utili zed to reduce the radiation dose to as low as reasonably achievable. Compar felix: Head CT performed March 25, 2013. Findings: Scalp: No abnorma lities. Bones: Intact. No fractures. No blastic or lytic lesions. Hyperostosi s frontalis. Brain sulci: Appropriate for patient's age. Ventricles: No rmal in size and configuration. No hydrocephalus. . Extra-axial space: No abnormalities. Parenchyma: There are new mild patchy areas of low-at tenuation within subcortical and periventricular white matter, nonspecific, bu t could represent microvascular ischemic disease. No masses, hemorrhage, or acute or chronic cortical based vascular insults. Suprasellar region: No ab normalities. Craniocervical junction: The foramen magnum is patent. No Chiari one malformation. Incidental findings: Opacified right sphenoid sinus with adjacent osteitis, consistent with chronic sinusitis. Impression: 1. No new acute intracranial finding when compared to prior head CT performed March 25, 2013. 2. New mild chronic microvascular ischemic change. Signed by: Dr. Uriel Kennedy M.D. on 06/03/2018 4:37 PM Dictated By: URIEL SILVA MD 1637 Transcribed By: ROSA on 06/03/18 1637 COPY TO: REYMUNDO POTTS MD PELVIC (NON OB) BOWERS OR [id number] 12:26:00 [place] [address] Patient Name: LUCAS BOYD MR #: [id number] : Age/Sex: 57/F Req #: [id number] Adm Physician: Ordered by: REYMUNDO POTTS MD Report #: [id number] Location: US Room/Bed: Procedure: US/US PELVIC (NON OB) BOWERS OR F /U Exam Date: 11/04/17 Exam Time: 1039 REPORT STATUS: Signed PROCEDURE: URINARY BLADDER ULTRASOUND COMPARISON: None. INDICATIONS: UTI, OVERACTIVE BLADDER CONCLUSION: Please refer to renal ultrasound performed at the same date and time for full dictated report . Orville Fontaine M.D. Dictated by: Eddie Zheng on 11/04/2017 at 12:26 Electronically approved by: Joaquin Zheng on 11/04/2017 at 12:26 Dictated By: ORVILLE FONTAIEN MD Elec tronically Signed By: ORVILLE FONTAINE MD on 11/04/17 1226 Transcribed By: SUPA on 11/04/17 1226 COPY TO: REYMUNDO POTTS MD US RENAL RETROPERITONEAL [id number] 12:24:00 [place] [address] Patient Name: LUCAS BOYD MR #: [id number] : 1960 Age/Sex: 57/F Req #: [id number] Adm Physician: Ordered by: REYMUNDO POTTS MD Report #: [id number] Location: US Room/Bed: Procedure: [id number] US/US RENAL RETROPERITONEAL CO MP Exam Date: 11/04/17 Exam Time: 1039 REPORT STATUS: Signed PROCEDURE: US RETROPERITONEAL ( KIDNEY ). COMPARISON: No ne. INDICATIONS: UTI, OVERACTIVE BLADDER TECHNIQUE: Duran-scale and color s onographic images of the bilateral kidneys and bladder where obtained in cao sverse and longitudinal planes. FINDINGS: RIGHT KIDNEY: 9.2 cm , cortex 1.3 cm Cysts: None Solid masses: None Stones: 1.2 x 0.5 x 1.0 cm hyperechoic cortical focus in the mid lateral aspect. Hydronephrosis: None. Mild pelvocaliectasis. Echogenicity: Normal LEFT KIDNEY: 10.0 cm, cortex 1.8 cm Cysts: None Solid masses: None Stones: None Hydronephrosis: Mild left hydronephrosis. Echogenicity: Normal Bladder: No focal lesions. B ilateral ureteral jets are identified. Mild circumferential bladder wall thic kening, which measures 0.3 cm. Prevoid bladder volume 138.2 mL. Post voi d bladder volume 66.8 mL CONCLUSION: 1. Normal bilateral renal size a nd echogenicity. 2. Mild left hydronephrosis. Mild right pelvocaliectasis. 3. 1.2 cm hyperechoic focus in the right mid lateral cortex may represent a c ortical calcification (likely sequela of prior inflammation or infection), ra ther than a nonobstructing calculus. 4. Mild circumferential bladder wall thic kening. No focal lesions. Mild post void residual. Orville nicolas M.D. Dictated by: Orville Fontaine M.D. on 11/04/2017 at 12:24 Electronically approved by: Orville Fontaine M.D. on 11/04/2017 at 12:24 Dictated By: ORVILLE FONTAINE MD 1224 Transcribed By: SUPA on 11/04/17 1224 COPY TO : REYMUNDO POTTS MD CHEST 2 [id number] 10:40:00 [place] [address] Patient Name: LUCAS BOYD MR #: [id number] : 1960 Age/Sex: 57/F Req #: [id number] Adm Physician: Ordered by: REYMUNDO POTTS MD Report #: [id number] Location: Room/Bed: Procedure: [id number] DX/CHEST 2 VIEWS Exam Date: Exam Time: REPORT STATUS: Signed PROCEDURE: X-RAY CHEST, TWO VIEWS COMPARISON: None. INDICATIONS: RESPIRATORY INFECTION FINDINGS: LUNGS: No consolidations or edema. PLEURA: No effusions or pneumothorax. HEART T MEDIASTINUM: The heart is within n ormal size-limits. Tortuous thoracic aorta. BONES T SOFT TISSUES: No acute findings. CONCLUSION: No acute thoracic abnormality. Chaka Hadley D.O. Dictated by: Chaka Hadley D.O. on 11/05/19 at 10:40 Electronically approved by: Chaka Hadley D.O. on 11/04/2017 at 10:40 Dictated By: CHAKA HADLEY DO 1040 Transcribed By: SUPA on 11/04/17 1040 COPY TO: REYMUNDO POTTS MD
[2019-08-17] MEDS ORDERED: FLUCONAZOLE 200 MG/100 ML 100 ML IV STA (18:48)
[2019-08-17] MEDS ORDERED: VANCOMYCIN 1GM/NS 250 ML 250 ML IV STA (18:48)
[2019-08-17] MEDS ORDERED: CEFEPIME 1GM/NS 0.9% 50 ML 50 ML IV STA (18:55)
[2019-08-17 19:23] LABS: BASOPHILS # (AUTO) 0.1 (0.0-0.1); BASOPHILS % 0.7 % (0.0-1.0); EOSINOPHILS # (AUTO) 0.1 (0.0-0.4); EOSINOPHILS % 0.6 % (0.0-6.0); HEMATOCRIT 46.3 % (34.2-44.1); HEMOGLOBIN 15.3 g/dL (12.0-16.0); LYMPHOCYTES # (AUTO) 2.1 (1.0-3.2); LYMPHOCYTES % 19.3 % (18.0-39.1); MEAN CORPUSCULAR HEMOGLOBIN 32.8 pg (28-32); MEAN CORPUSCULAR VOLUME 99.1 fL (81-99); MONOCYTES % 9.3 % (4.4-11.3); NEUTROPHILS # (AUTO) 7.3 (2.1-6.9); NEUTROPHILS % 67.6 % (38.7-80.0); PLATELET COUNT 245 x10e3/uL (140-360); RED BLOOD COUNT 4.67 x10e6/uL (3.6-5.1); RED CELL DISTRIBUTION WIDTH 13.3 % (11.7-14.4)
[2019-08-17 19:43] LABS: ALBUMIN 2.6 g/dL (3.5-5.0); ALBUMIN/GLOBULIN RATIO 0.7 (0.8-2.0); ANION GAP 15.4 mmol/L (8-16); CALCIUM 8.7 mg/dL (8.4-10.2); CREATININE, SERUM 1.16 mg/dL (0.57-1.11); POTASSIUM 4.4 mmol/L (3.5-5.1)
[2019-08-17] MEDS ORDERED: INSULIN REGULAR, HUMAN 100 UNIT/1 ML 3ML VIAL SQ ONE (19:45)
[2019-08-17] MEDS ORDERED: ONDANSETRON HCL INJ 2MG/ML 2ML 2 MG/ML VIAL IV PRN (20:00)
[2019-08-17] MEDS ORDERED: DEXTROSE 50% SYRINGE 50 ML IV PRN (20:00)
[2019-08-17] MEDS ORDERED: XARELTO20 MG PO (20:08)
[2019-08-17] MEDS ORDERED: METOPROLOL TAR100 MG PO (20:08)
[2019-08-17] MEDS ORDERED: VERAPAMIL HCL40 MG PO (20:08)
[2019-08-17] MEDS ORDERED: ALBUTEROL SULF 0.083% NEB SOLN 3 ML NEB INH PRN (20:15)
[2019-08-17] MEDS: INSULIN REGULAR, HUMAN 100 UNIT/1 ML 3ML VIAL SQ SCH (21:00)
[2019-08-17] MEDS ORDERED: LANTUS 3ML100 UNITS/ SC (21:27)
[2019-08-17 21:54] LABS: LYMPHOCYTES % (MANUAL) 23 % (19-48); METAMYELOCYTES % (MANUAL) 2 % (0-0); MONOCYTES % (MANUAL) 7 % (3.4-9.0); MYELOCYTES % (MANUAL) 3 % (0-0); NEUTROPHILS % (MANUAL) 65 % (40-74)
[2019-08-17 21:55] LABS: ANISOCYTOSIS SLIGHT; PLATELET ESTIMATE ADEQUATE; PLATELET MORPHOLOGY COMMENT NORMAL; POIKILOCYTOSIS SLIGHT; RBC MORPHOLOGY COMMENT NORMAL
--- NOTE | 2019-08-17 22:00 | NUR ---
Patient received via stretcher from ER. O x 3. Patient had no complaints of pain. Respirations even and non-labored. Admission history obtained from patient and patient's via telephone. Initial physical assessment performed. Patient oriented to room, call light and plan of care. Safety measures implemented. Patient instructed to call for assistance when needed. Call light within reach. Addendum: 08/18/19 at 0323 by Liana Pagan RN Please disregard above entry: Wrong patient.
[2019-08-17] MEDS: DEPAKOTE DELAYED-RELEASE TAB 500 MG PO SCH (22:15)
[2019-08-17] MEDS: NYSTATIN 15 GM POWDER UD BTL TOP SCH (22:15)
--- NOTE | 2019-08-17 22:15 | NUR ---
Patient received via stretcher from ER. AAO x 3. Patient had no complaints of pain. Respirations even and non-labored. Admission history obtained . Initial physical assessment performed. Multiple rashes noted on most part of patient's body. Patient oriented to room, call light and plan of care. Safety measures implemented. Patient instructed to call for assistance when needed. Call light within reach.
[2019-08-17] MEDS ORDERED: SODIUM CHLORIDE 0.9% 250ML 250 ML ONE (22:31)
[2019-08-17] MEDS ORDERED: VALACYCLOVIR1000 MG PO (23:07)
[2019-08-18] VITALS (7 sets, daily range): BP systolic 96–110; BP diastolic 55–63
--- NOTE | 2019-08-18 00:15 | NUR ---
Purewick placed on patient.
--- NOTE | 2019-08-18 00:45 | NUR ---
PICC line placed on left upper arm (double lumen).
[2019-08-18] MEDS: CEFEPIME 1GM/NS 0.9% 50 ML 50 ML IV SCH ×3 (01:00→20:00)
--- NOTE | 2019-08-18 01:34 | Diagnostic Imaging Report ---
EXAMINATION: CHEST XRAY LINE PLACEMENT INDICATION: PICC line placement COMPARISON: Chest x-ray 11/04/2017 FINDINGS: TUBES and LINES: Left upper extremity PICC, tip at the superior cavoatrial junction. LUNGS: Low lung volumes. Bibasilar haziness. No consolidations. PLEURA: No pleural effusion or pneumothorax. HEART AND MEDIASTINUM: The cardiomediastinal silhouette is unremarkable. BONES AND SOFT TISSUES: No acute osseous lesion. Soft tissues are unremarkable. UPPER ABDOMEN: No free air under the diaphragm. There are cholecystectomy clips. IMPRESSION: Left upper extremity PICC, tip at the superior cavoatrial junction. Low lung volumes with bibasilar atelectasis. Signed by: Guido Rodriguez DO on 08/18/2019 1:31 AM
[2019-08-18 05:38] LABS: BASOPHILS % 0.6 % (0.0-1.0); EOSINOPHILS # (AUTO) 0.1 (0.0-0.4); HEMATOCRIT 37.9 % (34.2-44.1); HEMOGLOBIN 12.5 g/dL (12.0-16.0); LYMPHOCYTES # (AUTO) 1.7 (1.0-3.2); LYMPHOCYTES % 25.1 % (18.0-39.1); MEAN CORPUSCULAR HEMOGLOBIN 32.3 pg (28-32); MEAN CORPUSCULAR VOLUME 97.9 fL (81-99); MONOCYTES # (AUTO) 0.6 (0.2-0.8); MONOCYTES % 8.9 % (4.4-11.3); NEUTROPHILS # (AUTO) 4.3 (2.1-6.9); NEUTROPHILS % 62.5 % (38.7-80.0); PLATELET COUNT 209 x10e3/uL (140-360); RED BLOOD COUNT 3.87 x10e6/uL (3.6-5.1); RED CELL DISTRIBUTION WIDTH 13.4 % (11.7-14.4)
[2019-08-18] MEDS: LEVOTHYROXINE SODIUM 25 MCG TABLET PO SCH (06:00)
[2019-08-18 06:17] LABS: ALANINE AMINOTRANSFERASE 9 IU/L (0-55); ALBUMIN 2.2 g/dL (3.5-5.0); ALBUMIN/GLOBULIN RATIO 0.7 (0.8-2.0); ALKALINE PHOSPHATASE 86 IU/L (40-150); ANION GAP 11.8 mmol/L (8-16); BLOOD UREA NITROGEN 31 mg/dL (7-26); BUN/CREATININE RATIO 37 (6-25); CALCIUM 8.2 mg/dL (8.4-10.2); CARBON DIOXIDE 25 mmol/L (22-29); CHLORIDE 103 mmol/L (98-107); CREATININE, SERUM 0.83 mg/dL (0.57-1.11); EST GLOMERULAR FILTRATION RATE > 60 ML/MIN (60-); GLUCOSE 176 mg/dL (74-118); POTASSIUM 3.8 mmol/L (3.5-5.1); SODIUM 136 mmol/L (136-145)
--- NOTE | 2019-08-18 06:50 | NUR ---
Walking rounds done. Shift report given to oncoming nurse regarding patient's health status. .
--- NOTE | 2019-08-18 07:00 | NUR ---
RCD PT AT BED PT IS ALERT AND ORIENTED PT RESTING ON BED NO SIGNS OF ANY DISTRESS NOTED IV PATENT BED LOW AND LOCKED CALL LIGHT IN REACH
[2019-08-18] MEDS: INSULIN REGULAR, HUMAN 100 UNIT/1 ML 3ML VIAL SQ SCH ×4 (07:30→20:54)
--- NOTE | 2019-08-18 07:46 | History and Physical ---
ADDENDUM: The patient has history of atrial fibrillation and DVT, that is the reason she is taking Xarelto 20 mg daily. MD YI StephensonJ/MODL /[id number]
[2019-08-18] MEDS: TRAMADOL HCL 50 MG TAB PO SCH ×4 (08:45→21:30)
[2019-08-18] MEDS: DIGOXIN 0.125 MG TAB PO SCH (09:00)
[2019-08-18] MEDS: NYSTATIN 15 GM POWDER UD BTL TOP SCH (09:00)
[2019-08-18] MEDS: DEPAKOTE DELAYED-RELEASE TAB 500 MG PO SCH ×2 (09:00→17:00)
[2019-08-18] MEDS: LEVOTHYROXINE SODIUM 112 MCG TAB PO SCH (09:00)
[2019-08-18] MEDS: RIVAROXABAN 20 MG TABLET PO SCH (09:00)
[2019-08-18] MEDS: METOPROLOL TARTRATE 50 MG TAB PO SCH ×2 (09:00→17:00)
[2019-08-18] MEDS: VANCOMYCIN 1GM/NS 250 ML 250 ML IV SCH ×2 (09:00→21:30)
--- NOTE | 2019-08-18 09:16 | History and Physical ---
CHIEF COMPLAINT: The patient is a 58-year-old female with a history of seizure disorder and diabetes, who comes in with skin rash, which is spreading. HISTORY OF PRESENT ILLNESS: Ms. Ivy Infante came in with generalized rash that started off in the groin area, not itchy. Currently, the patient also has on her skin folds and then migrated up throughout her body and it is up onto her neck and her back. The patient also has disease spread all the way down to her thighs. PAST MEDICAL HISTORY: The patient has a history of hypothyroidism. The patient has a history of seizure disorder and conversion disorder, history of diabetes mellitus, history of hypothyroidism, history of hypertension, history of DVTs, and history of chronic viral infections. The patient also has hypertension. MEDICATIONS: She takes at home, acetaminophen, codeine, tramadol depending on the pain, albuterol/Atrovent inhaler, diltiazem, Cardizem 60 mg,3 times a day. She also takes Depakote 1000 mg twice a day ER , Lasix 20 mg daily, insulin glargine 20 units, levothyroxine 112 mcg, lisinopril 10 mg, metoprolol 100 mg twice a day, and Xarelto 20 mg daily, valacyclovir 1000 mg every 8 hours. SOCIAL HISTORY: No EtOH. No IV drug abuse. Lives with mother and sister. FAMILY HISTORY: Positive for diabetes in the family and positive for hypertension. 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 She also had cataract surgeries and partial hysterectomy. REVIEW OF SYSTEMS: Negative for chest pain. No shortness of breath. No nausea. No vomiting. No diarrhea. No constipation. No rectal bleeding. No hematochezia. No hematemesis. Positive for some headaches, positive for seizures in the past, and positive for movement disorders. PHYSICAL EXAMINATION: On examination, present during examination. VITAL SIGNS: Temperature is 98.7, pulse 107, respirations 20, blood pressure is 105/62, pulse oximetry of 95%. GENERAL: The patient is morbidly obese. HEENT: Normocephalic, atraumatic. Pupils are reactive. CVS: S1 and S2 normal. Regular rate and rhythm. ABDOMEN: Nontender. Nondistended. EXTREMITIES: Positive for trace edema. SKIN AND INTEGUMENTARY SYSTEM: The patient has multiple erythematous patches with satellite nodules spreading all through the skin slightly indicative of fungal infection. The patient also has excoriations, which are of secondary to itching and has erythematous response to this. LABORATORY VALUES: White count is 10.85, hemoglobin of 15.3, neutrophil count 67.6. Chemistry shows sodium of 131, potassium 4.4, glucose is 408, BUN of 37, creatinine of 1.16. Microbiology, blood cultures are pending. IMAGING STUDIES: The patient had a catheter placement. The patient , she had a PICC line put in. ASSESSMENT: Ms. Ivy Infante with: 1. Candidal cellulitis. 2. Superinfection from physical manipulation. 3. History of seizure disorder. 4. Uncontrolled diabetes mellitus. 5. Acute renal failure. 6. Leukocytosis. 7. Morbid obesity. 8. Seizure disorder with pituitary malfunction. PLAN: At this time, the patient is on cefepime q.12 hours. She is also back on nystatin topical daily, vancomycin 1 g q.12 hours, and also the patient is on fluconazole 200 mg once daily. Plan, continue to monitor the patient. Consult with Dr. Leos will be done. We will continue monitoring her. Physical therapy will be instituted. The patient needs placement secondary to her problems. Plan, continue to monitor the patient. Further recommendation per clinical course. We will continue monitor the labs and also her acute renal failure. We will go ahead and stop the fluids in about 12-24 hours. Further recommendation per clinical course. MD CHRIS Stephenson/MODL /[id number]
--- NOTE | 2019-08-18 10:20 | NUR ---
ASSESSMENT: Spiritual concern Pt worried about illness. Pt states she has "a rash all over" and "they told me not to look at it but I can't help it." Pt requested prayer. Intervention: Provided hospitality and calming emotional support. Provided prayer and information on how to reach mat man, if needed. Outcome: Pt expressed appreciation support. No need to follow at this time. ELIZA ALLEN Engineering Librarian Spiritual Care Department O: [phone]
[2019-08-18] MEDS ORDERED: FLUCONAZOLE 200 MG/100 ML 100 ML IV SCH (11:00)
--- NOTE | 2019-08-18 12:38 | NUR ---
SPOKE WITH PT ABOUT SNF ORDER, SIGNED CHOICE FOR FOCUSED CARE FILED IN CHART, FAXED WHAT I DID HAVE. WILL NEED TO FAX COVID FORM AND PT NOTES WHEN GET THEM.
[2019-08-18] MEDS: VERAPAMIL HCL 80 MG TAB PO SCH ×4 (13:00→20:53)
--- NOTE | 2019-08-18 15:31 | NUR ---
PT REPORTED TO THERAPY THAT NOW SHE DOES NOT WANT TO GO TO A SNF BUT WANTS A WHEELCHAIR AND TO GO HOME.
--- NOTE | 2019-08-18 15:52 | NUR ---
Nutrition Intervention Note RD Recommendation(s) for Physician: -Recommend diabetic/cardiac diet -Glucerna BID for added nutrition due to poor reported intake Plan of Care: RD following, monitoring for tolerance and adequacy Nutrition reason for involvement: Nutrition Risk Trigger MST 3 RD Assessment (08/17) Pt is a 58 year old female admitted with carroll infection and cellulitis. Pt reports a poor appetite with < 50% meal intake for the past 3 weeks. No weight loss reported. No N/V, but pt mentioned she had diarrhea yesterday. No chewing/swallowing issues. Pt stated she usually drinks a nutrition supplement drink in the mornings. Will continue to monitor. Principal Problems/Diagnoses: carroll infection and cellulitis PMH: hypothyroid, seizure and conversion disorder, diabetes, hypothyroid, DVT, chronic viral infections, and HTN GI: soft, non-tender, round abdomen Skin: no pressure ulcers Labs: (08/17) BUN 31, Glu 176, Ca 8.2 Meds: insulin, metoprolol, vancomycin, levothyroxine, zofran Ht: 64 inches Wt: 298 lbs BMI: 51.2 kg/m2 IBW: 120 lbs Malnutrition Evaluation (08/18/19) The patient does not meet criteria for a specified degree of malnutrition at this time. Will re-evaluate at follow-up as appropriate. Energy intake: <50% of estimated energy requirements for >5 days Weight loss: No weight loss reported Fat loss: unable to evaluate Muscle loss: unable to evaluate Supporting Evidence: Fluid accumulation: trace edema in extremities per MD note Functional Status: unable to evaluate Nutrition Prescription (Diet Order): Cardiac Estimated Nutritional Needs: 1200 1364 calories/day (22-25 kcal/kg IBW) 82 109 g protein/day (1.5-2 g pro/kg IBW) Diet Adequacy: Not meeting calorie needs, Not meeting protein needs Tolerance: Tolerating PO Diet Education Needs Assessment: Diet education indicated, but pt declined Nutrition Care Level: moderate Nutrition Diagnosis: Inadequate energy intake related to decreased ability to consume sufficient energy secondary to decreased appetite as evidenced by pt eating <50% of meals. Goal: Patient will meet 75-100% of estimated needs by follow up Progress: N/A Interventions: -carbohydrate and fat/cholesterol/sodium - modified diet, Commercial beverage, Recommended Modifications Monitoring/Evaluation: -Total energy intake, Total protein intake, Modified diet, Liquid supplement, Weight change Signed: Joana Melgar RD, LD
--- NOTE | 2019-08-18 17:00 | NUR ---
PT recommends SNF placement. Pt can go home if sister and niece will provide assistance with any OOB activities. Pt will need a wide W/C and 3-1 BSC for home use. Addendum: 08/18/19 at 2242 by Alex Franks PT Amended: Links added.
--- NOTE | 2019-08-18 18:37 | NUR ---
PT RESTING ON BED BED SIDE REPORT GIVE TO ONCOMING NURSE
--- NOTE | 2019-08-18 19:00 | NUR ---
Pt visited in room during nursing rounds. Patient alert and oriented x3. Pt morbidly obese and unable to ambulate at this time due to weakness. On scheduled IV antibiotics. C/O pain on left leg and is being medicated accordingly. Call rae within reach. Will monitor closely.
--- NOTE | 2019-08-18 19:03 | Consultation ---
DATE OF CONSULTATION: REASON FOR CONSULTATION: Cellulitis of abdominal wall, skin rash. HISTORY OF PRESENT ILLNESS: This is a 58-year-old female with history of morbidly obese patient, history of seizure disorder, diabetes mellitus, comes in with skin rash which is fretting. The patient has two different kind of rash. She has erythematous rash which is underneath her breast and is between the skin fold. There is also a different rash noted in her skin, which she had for some time with itching. The patient denies any fever or chills. The patient who has history of obesity, hypothyroidism, seizure disorder, conversion disorder, hypertension, DVT. PAST SURGICAL HISTORY: Denies. ALLERGIES: NKA. SOCIAL HISTORY: There is no smoking, drug abuse, or alcohol abuse. FAMILY HISTORY: Noncontributory. HOME MEDICATIONS: She is on acetaminophen, codeine, tramadol, albuterol, diltiazem, Cardizem, Depakote, Lasix, metoprolol. REVIEW OF SYSTEMS: She is just weak in general. She is having itchy skin as mentioned above. LABORATORY DATA: White count 6.9, hemoglobin 12.7, platelet 209. She has 65% segs. Metamyelocyte and monocytes were elevated. Sodium 131, potassium 4.4 creatinine 1.16 when she first came, today is 0.83. Glucose is elevated. PHYSICAL EXAMINATION: GENERAL: She is currently alert, oriented, does not seem in acute distress. VITAL SIGNS: Stable, currently afebrile. HEENT: She is not icteric. NECK: Supple. CHEST: Clear. HEART: S1, S2. No S3, S4 or murmur. ABDOMEN: Soft. She did have erythema in between the skin folds. She has also diffuse rash. IMPRESSION: I think, the patient has two different kind of rash. The first one is a dermatitis, which I think is consistent with drug rash. The following is a yeast infection. I would recommend to give Diflucan, clindamycin. Discontinue vancomycin and cefepime. We can give her hydrocortisone. We will discuss with Dr. Fuller. She will probably benefit from skin biopsy, which could be done as an outpatient. We will follow. MD YOSEPH Campo/SCOTT /[id number]
--- NOTE | 2019-08-18 20:20 | NUR ---
Received call from lab Vanc trough = 15.6. Will hang vanc 1gm IV.
--- NOTE | 2019-08-18 20:50 | NUR ---
02 2 l placed for c/o sob o2 sat 97% on RA will cont to monitor
[2019-08-18] MEDS: INSULIN GLARGINE 100 UNITS/ML VIAL SC SCH (20:54)
[2019-08-19] VITALS (9 sets, daily range): BP systolic 79–96; BP diastolic 40–68
[2019-08-19] MEDS: TRAMADOL HCL 50 MG TAB PO SCH (02:52)
[2019-08-19 05:24] LABS: BASOPHILS % 0.7 % (0.0-1.0); EOSINOPHILS # (AUTO) 0.1 (0.0-0.4); EOSINOPHILS % 1.6 % (0.0-6.0); HEMATOCRIT 38.7 % (34.2-44.1); HEMOGLOBIN 12.3 g/dL (12.0-16.0); LYMPHOCYTES # (AUTO) 1.9 (1.0-3.2); LYMPHOCYTES % 31.7 % (18.0-39.1); MEAN CORPUSCULAR HEMOGLOBIN 31.8 pg (28-32); MEAN CORPUSCULAR HGB CONC 31.8 g/dL (31-35); MONOCYTES # (AUTO) 0.5 (0.2-0.8); MONOCYTES % 8.5 % (4.4-11.3); NEUTROPHILS # (AUTO) 3.3 (2.1-6.9); NEUTROPHILS % 53.9 % (38.7-80.0); PLATELET COUNT 223 x10e3/uL (140-360); RED BLOOD COUNT 3.87 x10e6/uL (3.6-5.1); RED CELL DISTRIBUTION WIDTH 13.6 % (11.7-14.4)
[2019-08-19] MEDS: LEVOTHYROXINE SODIUM 25 MCG TABLET PO SCH (05:25)
[2019-08-19] MEDS: LEVOTHYROXINE SODIUM 112 MCG TAB PO SCH (05:35)
[2019-08-19 05:54] LABS: ANION GAP 8.5 mmol/L (8-16); BLOOD UREA NITROGEN 25 mg/dL (7-26); BUN/CREATININE RATIO 31 (6-25); CALCIUM 8.2 mg/dL (8.4-10.2); CARBON DIOXIDE 26 mmol/L (22-29); CHLORIDE 105 mmol/L (98-107); CREATININE, SERUM 0.81 mg/dL (0.57-1.11); EST GLOMERULAR FILTRATION RATE > 60 ML/MIN (60-); GLUCOSE 167 mg/dL (74-118); POTASSIUM 4.5 mmol/L (3.5-5.1); SODIUM 135 mmol/L (136-145)
[2019-08-19] MEDS: HYDROXYZINE HCL 25 MG TAB PO PRN ×2 (06:40→23:20)
[2019-08-19] MEDS: INSULIN REGULAR, HUMAN 100 UNIT/1 ML 3ML VIAL SQ SCH ×4 (07:30→20:10)
[2019-08-19] MEDS: CEFEPIME 1GM/NS 0.9% 50 ML 50 ML IV SCH ×2 (08:00→20:10)
[2019-08-19] MEDS: VANCOMYCIN 1GM/NS 250 ML 250 ML IV SCH (09:00)
[2019-08-19] MEDS: NYSTATIN 15 GM POWDER UD BTL TOP SCH (09:00)
[2019-08-19] MEDS: RIVAROXABAN 20 MG TABLET PO SCH (09:00)
[2019-08-19] MEDS: METOPROLOL TARTRATE 50 MG TAB PO SCH ×2 (09:00→17:00)
[2019-08-19] MEDS: VERAPAMIL HCL 80 MG TAB PO SCH ×4 (09:00→19:49)
[2019-08-19] MEDS: DIGOXIN 0.125 MG TAB PO SCH (09:00)
[2019-08-19] MEDS: DEPAKOTE DELAYED-RELEASE TAB 500 MG PO SCH ×2 (09:00→17:00)
[2019-08-19] MEDS: TRAMADOL HCL 50 MG TAB PO PRN ×2 (09:35→15:19)
[2019-08-19] MEDS ORDERED: ONDANSETRON HCL 4 MG ORAL DISINTEGRATING TAB PO PRN (10:45)
[2019-08-19] MEDS: FLUCONAZOLE 100 MG TAB PO SCH (10:46)
--- NOTE | 2019-08-19 19:00 | NUR ---
Pt visited in room during nursing rounds. Patient alert and oriented x3. Pt morbidly obese and unable to ambulate at this time due to weakness. On scheduled IV antibiotic treatment. Intermittent pain on left leg and is being medicated accordingly. Call rae within reach. Will monitor closely.
--- NOTE | 2019-08-19 19:00 | NUR ---
PT RESTING ON BED BED SIDE REPORT GIVE TO ONCOMING NURSE
[2019-08-19] MEDS: INSULIN GLARGINE 100 UNITS/ML VIAL SC SCH (21:00)
[2019-08-20] VITALS (8 sets, daily range): BP systolic 77–114; BP diastolic 47–73
[2019-08-20] MEDS: LEVOTHYROXINE SODIUM 25 MCG TABLET PO SCH (06:10)
[2019-08-20] MEDS: LEVOTHYROXINE SODIUM 112 MCG TAB PO SCH (06:10)
[2019-08-20] MEDS: DEPAKOTE DELAYED-RELEASE TAB 500 MG PO SCH ×2 (08:48→16:49)
[2019-08-20] MEDS: DIGOXIN 0.125 MG TAB PO SCH (08:48)
[2019-08-20] MEDS: VERAPAMIL HCL 80 MG TAB PO SCH ×4 (08:48→20:04)
[2019-08-20] MEDS: CEFEPIME 1GM/NS 0.9% 50 ML 50 ML IV SCH (08:48)
[2019-08-20] MEDS: NYSTATIN 15 GM POWDER UD BTL TOP SCH (08:49)
[2019-08-20] MEDS: TRAMADOL HCL 50 MG TAB PO PRN ×2 (08:49→16:51)
[2019-08-20] MEDS: RIVAROXABAN 20 MG TABLET PO SCH (08:49)
[2019-08-20] MEDS: INSULIN REGULAR, HUMAN 100 UNIT/1 ML 3ML VIAL SQ SCH ×4 (08:49→20:52)
[2019-08-20] MEDS: METOPROLOL TARTRATE 50 MG TAB PO SCH ×2 (08:49→16:38)
--- NOTE | 2019-08-20 11:34 | NUR ---
aware of bp 92/50. States to hold 1pm verapamil.
[2019-08-20] MEDS ORDERED: SODIUM CHLORIDE 0.9% 250ML 0 ML ONE (12:09)
[2019-08-20] MEDS: FLUCONAZOLE 100 MG TAB PO SCH (12:19)
[2019-08-20] MEDS: CLINDAMYCIN PHOS 900MG/ 50ML 50 ML IV SCH ×3 (12:19→23:23)
--- NOTE | 2019-08-20 16:39 | NUR ---
BP 91/47. aware. Per "hold bp medications"
--- NOTE | 2019-08-20 18:59 | NUR ---
Report given to oncoming nurse of patient's status. Resting in bed with eyes closed. Arousable to verbal stimuli. Respirations even and unlabored. Side rails upx2, call light within reach.
--- NOTE | 2019-08-20 19:39 | NUR ---
RECEIVED REPORT FROM DAY NURSE. PATIENT IS RESTING COMFORTABLY IN THE BED. BED IS IN THE LOWEST POSITION AND CALL LIGHT IS WITHIN REACH. WILL CONTINUE TO MONITOR PATIENT.
--- NOTE | 2019-08-20 20:47 | NUR ---
BLOOD PRESSURE RECHECKED AND FOUND TO BE 86/64. PATIENT IS AWAKE AND TALKING. NO SIGNS OF DISTRESS NOTED. WILL CONTINUE TO MONITOR PATIENTS BLOOD PRESSURE.
[2019-08-20] MEDS: INSULIN GLARGINE 100 UNITS/ML VIAL SC SCH (20:52)
[2019-08-20] MEDS: HYDROXYZINE HCL 25 MG TAB PO PRN (20:53)
[2019-08-20] MEDS ORDERED: SODIUM CHLORIDE 0.9% 250ML 250 ML ONE (23:14)
[2019-08-21 00:26] VITALS: BP 81/50
[2019-08-21] MEDS: TRAMADOL HCL 50 MG TAB PO PRN (04:08)
[2019-08-21] MEDS: CLINDAMYCIN PHOS 900MG/ 50ML 50 ML IV SCH ×3 (05:22→18:18)
[2019-08-21] MEDS: LEVOTHYROXINE SODIUM 25 MCG TABLET PO SCH (05:22)
[2019-08-21] MEDS: HYDROXYZINE HCL 25 MG TAB PO PRN ×3 (06:08→20:08)
--- NOTE | 2019-08-21 06:27 | NUR ---
PATIENT IS RESTING IN BED. BED IS IN LOWEST POSITION AND CALL LIGHT IS WITHIN REACH.
[2019-08-21] MEDS ORDERED: SODIUM CHLORIDE 0.9% 500ML 500 ML ONE (06:45)
--- NOTE | 2019-08-21 06:47 | NUR ---
MD IN BUILDING AND NOTIFIED OF PATIENTS BLOOD PRESSURE OF 91/57. ORDERS 500CC BOLUS OF FLUIDS X 1. ALSO DC'S VERAPAMIL MEDICATION. WILL CONTINUE TO MONITOR PATIENT.
[2019-08-21] MEDS ORDERED: SODIUM CHLORIDE 0.9% 500ML 500 ML IV ONE (07:00)
--- NOTE | 2019-08-21 07:19 | NUR ---
PATIENT IN BED RECEIVING BOLUS FLUID, NO DISTRESS NOTED. REDNESS AND SWELLING TO LOWER EXTREMITIES; REDNESS AND EXCORIATION TO LOWER ABDOMEN AND PERINEAL AREA. BED IN LOWER POSITION, CALL LIGHT AT REACH.
[2019-08-21] MEDS: INSULIN REGULAR, HUMAN 100 UNIT/1 ML 3ML VIAL SQ SCH ×4 (07:30→21:00)
--- NOTE | 2019-08-21 08:09 | NUR ---
CONTACTED FACILITY STILL PENDING AUTH. WILL UPDATE WHEN GET MORE INFORMATION.
--- NOTE | 2019-08-21 08:11 | Progress Note ---
DATE: SUBJECTIVE: The patient is a 58-year-old lady with a history of abdominal wall erythema and itching, was seen by Dr. Leos and the recommendation was to start of steroids; discontinue her vancomycin and cefepime, and start her on clindamycin and Diflucan, hydrocortisone also was given for treatment, thinking was more towards drug rash and also yeast infection. OBJECTIVE: VITAL SIGNS: Temperature is 97.2, pulse of 85, respirations of 20, blood pressure is 81/50. HEENT: Normocephalic and atraumatic. Pupils are reactive to light and accommodation. CVS: S1 and S2, distant. LUNGS: Decreased air entry. ABDOMEN: Protuberant. EXTREMITIES: Positive for edema. SKIN: With decreased erythema in the sites of infection and also itching is decreased. ASSESSMENT: Ms. Ivy Infante with possible: 1. Drug rash. 2. Cellulitis of the anterior abdominal wall. 3. Infection of the skin folds. 4. Morbid obesity. 5. Hypertensive episodes. 6. Generalized debility. PLAN: Again, continue clindamycin and Diflucan has been ordered. The patient is also on Xarelto, which she has for atrial fibrillation, we will continue the same. Hold back verapamil. Continue monitoring her blood pressure, titrate down the beta-karina if needed. Continue to hold back pain medication as needed. For diabetes, we will continue with insulin. Further recommendation per clinical course. We will continue to monitor the patient. We recommended SNF to this patient because of her comorbidities, especially with her lack of physical strength. We will need more reconditioning and also monitoring for blood pressure since has been on the lower side. Further recommendation, clinical course. We will continue to monitor the patient and also ordered a 500 mL bolus for her. Microbiology of the patient has been negative and the chemistries and Hematology are all within normal limits. Vancomycin trough is 15.6, but has been discontinued. MD CHRIS Stephenson/MODL /[id number]
[2019-08-21] MEDS: METOPROLOL TARTRATE 50 MG TAB PO SCH ×2 (09:00→17:00)
[2019-08-21] MEDS: DEPAKOTE DELAYED-RELEASE TAB 500 MG PO SCH ×2 (09:21→17:20)
[2019-08-21] MEDS: RIVAROXABAN 20 MG TABLET PO SCH (09:22)
[2019-08-21] MEDS: NYSTATIN 15 GM POWDER UD BTL TOP SCH (09:22)
[2019-08-21] MEDS: LEVOTHYROXINE SODIUM 112 MCG TAB PO SCH (09:22)
[2019-08-21] MEDS: DIGOXIN 0.125 MG TAB PO SCH (09:22)
--- NOTE | 2019-08-21 11:08 | Progress Note ---
DATE: SUBJECTIVE: The patient is seen and evaluated, discussed with Dr. Leos in detail. REVIEW OF SYSTEMS: Complaining of a back and armpit itch, otherwise no new complaints. No nausea. No vomiting. No fever. No chills. No chest pain. No shortness of breath. No headache. No dysuria. MEDICATIONS: Medication list reviewed. As far as Infectious Disease point of view, the patient is on clindamycin and Diflucan. LABORATORY STUDIES: No new CBC or BMP available. MICROBIOLOGY: Blood culture from 08/17/2019 is negative. RADIOLOGY STUDIES: No new radiology studies available. ALLERGIES: PENICILLIN. PHYSICAL EXAMINATION: VITAL SIGN: Temperature 97.8, pulse 101, respiration 19, blood pressure 81/50. GENERAL: Alert and oriented, no acute distress. CVS: S1, S2. CHEST: Equal expansion. Clear to auscultation. No acute distress. ABDOMEN: Soft and nontender. No distention. Morbidly obese. HEENT: Moist. No pallor. No JVD. EXTREMITIES: Very weak with edema. Multiple rashes noted, however, they seem to be improving. ASSESSMENT AND PLAN: 1. Dermatitis. 2. Drug rash. 3. Morbid obesity. 4. Hypothyroidism. 5. Hypertension. 6. Debility. 7. Leukocytosis, resolved. 8. Antibiotic changed to Cleocin and Diflucan yesterday. Continue with local care. Discussed with Dr. Leos in detail. Continue tight glucose control. The patient with multiple comorbidities, SNF is in the thoughts. Continue to monitor the patient clinically and follow with the labs. Discussed with Dr. Leos in detail. Dictated by Taiwo George PA-C (Al) Addis Leos MD /MODL /[id number]
--- NOTE | 2019-08-21 11:14 | NUR ---
PATIENT REPOSITIONED IN BED. CALL LIGHT AT REACH.
[2019-08-21] MEDS: FLUCONAZOLE 100 MG TAB PO SCH (11:54)
[2019-08-21 12:00] VITALS: BP 89/73
--- NOTE | 2019-08-21 13:22 | NUR ---
WOUND CARE CONSULT FOR 58 YO FEMALE HX OF CELLULITIS, YEAST INFECT CROW 16 ON MODERATE PUP STATUS AND INTERVENTIONS AND ALTERNATING PRESSURE MATTRESS LABS: WBC-6 HGB_12.3 SKIN ASSESSMENT COMPLETE PATIENT PRESENTS WITH GENERALIZED YEAST RASH TO BACK UNDERARM AND COHEN FOLDS PATIENT CURRENTLY ON NYSTATIN AND IV MEDS RECOMMEND ADDING TO CURRENT TREATMENT ABD PADS UNDER ARMS AND NEEDED SKIN FOLDS TO CONTROL MOISTURE AND AVOID SKIN TO SKIN IRRITATION RECOMMENDATIONS: NURSING TO CONTINUE TO MAINTAIN MODERATE PUP STATUS AND INTERVENTIONS AND ALTERNATING PRESSURE MATTRESS NURSING TO CONTINUE TO ASSIST PATIENT OUT OF BED FOR MEALS AND MUCH TOLERATED NURSING TO CONTINUE TO ASSIST PATIENT NEEDED WITH MEALS AND NUTRITIONAL SUPPLEMENTS TO ENSURE PROPER REQUIREMENTS FOR HEALING NURSING TO CONTINUE TO OFFLOAD FEET AND HEELS NEEDED WITH PILLOW SUSPENSION WHEN IN BED NURSING TO ASSIST PATIENT TO CLEAN UNDER ARMS AND SKIN FOLDS WITH NON IRRITATING SOAP AND WATER DAILY AND APPLY NYSTATIN CREAM PLACE ABD PAD BETWEEN SKIN FOLDS AND UNDER ARMS Addendum: 08/21/19 at 1330 by Shelton Roach RN Amended: Links added.
--- NOTE | 2019-08-21 15:25 | NUR ---
PATIENT EXERCISED IN ROOM WITH PHYSICAL THERAPY. ASSISTED BACK TO BED WITH CALL LIGHT AT REACH.
--- NOTE | 2019-08-21 15:28 | NUR ---
[facility] FACILITY DISCHARGE INFORMATION PATIENT HAS BEEN ACCEPTED TO: NAME: NILS GUZMAN ADDRESS:[id number] [place] [address] ACCEPTING QUILT SEWER: LEATHA CROSS ACCEPTING MD: DEN[place] ROOM: [address] NURSE CALL REPORT TO: [phone] IMM SIGNED AND OBTAINED (if applicable): IMM THE FOLLOWING DOCUMENTS MUST ACCOMPANY PATIENT FOR TRANSFER: COPIED CHART: PACKET
[2019-08-21 16:00] VITALS: BP 83/60
--- NOTE | 2019-08-21 16:00 | NUR ---
FACILITY CALLED AND STATES CANNOT TAKE PT TONIGHT THEY WILL CONTACT MYSELF OR CM IN THE MORNING TO CONFIRM BETWEEN 9 AND 10AM WHEN WE CAN DISCHARGE.
[2019-08-21 20:00] VITALS: BP 85/55
[2019-08-21] MEDS: INSULIN GLARGINE 100 UNITS/ML VIAL SC SCH (21:00)
[2019-08-22] VITALS: BP 96/57
[2019-08-22 04:00] VITALS: BP 106/70
[2019-08-22 05:18] LABS: BASOPHILS # (AUTO) 0.1 (0.0-0.1); BASOPHILS % 1.3 % (0.0-1.0); EOSINOPHILS # (AUTO) 0.1 (0.0-0.4); EOSINOPHILS % 1.7 % (0.0-6.0); HEMATOCRIT 39.1 % (34.2-44.1); HEMOGLOBIN 12.6 g/dL (12.0-16.0); LYMPHOCYTES % 42.4 % (18.0-39.1); MEAN CORPUSCULAR HEMOGLOBIN 32.2 pg (28-32); MEAN CORPUSCULAR HGB CONC 32.2 g/dL (31-35); MONOCYTES # (AUTO) 0.4 (0.2-0.8); MONOCYTES % 7.8 % (4.4-11.3); NEUTROPHILS # (AUTO) 1.9 (2.1-6.9); NEUTROPHILS % 39.9 % (38.7-80.0); PLATELET COUNT 186 x10e3/uL (140-360); RED BLOOD COUNT 3.91 x10e6/uL (3.6-5.1); RED CELL DISTRIBUTION WIDTH 13.9 % (11.7-14.4)
[2019-08-22 05:34] LABS: ANION GAP 6.9 mmol/L (8-16); BLOOD UREA NITROGEN 13 mg/dL (7-26); BUN/CREATININE RATIO 18 (6-25); CALCIUM 8.2 mg/dL (8.4-10.2); CARBON DIOXIDE 29 mmol/L (22-29); CHLORIDE 107 mmol/L (98-107); CREATININE, SERUM 0.74 mg/dL (0.57-1.11); EST GLOMERULAR FILTRATION RATE > 60 ML/MIN (60-); GLUCOSE 204 mg/dL (74-118); POTASSIUM 4.9 mmol/L (3.5-5.1); SODIUM 138 mmol/L (136-145)
[2019-08-22] MEDS: LEVOTHYROXINE SODIUM 25 MCG TABLET PO SCH (06:18)
[2019-08-22] MEDS: CLINDAMYCIN PHOS 900MG/ 50ML 50 ML IV SCH ×3 (06:18→12:09)
[2019-08-22] MEDS ORDERED: SODIUM CHLORIDE 0.9% 1000ML 500 ML IV STA (06:45)
[2019-08-22 07:10] VITALS: BP 105/61
--- NOTE | 2019-08-22 07:10 | NUR ---
PATIENT IN BED RESTING WITH NO S/S OF DISTRESS. MD IN TO SEE PATIENT, NO NEW ORDER RECEIVED. CALL LIGHT AT REACH.
[2019-08-22] MEDS: INSULIN REGULAR, HUMAN 100 UNIT/1 ML 3ML VIAL SQ SCH ×3 (07:30→16:30)
[2019-08-22 08:00] VITALS: BP 105/61
--- NOTE | 2019-08-22 08:30 | Progress Note ---
DATE: SUBJECTIVE: A 58-year-old female, who came in with cellulitis of the abdominal wall and also drug reaction and fungal infection of the skin on the abdominal wall and the folds. The patient is currently still weak, tired. Working with physical therapy, will benefit from PT and SNF or rehabilitation place. Currently, no chest pain. No shortness of breath. Has been taking all her medications. MEDICATIONS: Currently active are clindamycin. She is on digoxin, Depakote delayed-release, fluconazole, hydroxyzine as needed, insulin glargine, insulin for sliding scale, levothyroxine, metoprolol, nystatin, Xarelto, and tramadol. PHYSICAL EXAMINATION: VITAL SIGNS: Temperature is 97.9, pulse of 89, respirations of 20, blood pressure is 106/70, pulse oximetry of 100%. HEENT: Normocephalic, atraumatic. Morbidly obese. CVS: S1, S2. Regular. ABDOMEN: Nontender, nondistended. Pannus present. EXTREMITIES: No clubbing. No cyanosis. Positive for edema. LABORATORY VALUES: White count 4.76, which is down. Hemoglobin of 12.6, hematocrit of 39.1, platelet count is 186. Chemistries; sodium of 138, potassium 4.9, BUN of , creatinine 0.74. Glucose have been running in the 160s to 250 range. Microbiology; blood cultures, no growth noted. ASSESSMENT: Ms. Ivy Infante is a 58-year-old lady with: 1. Dermatitis. 2. Candidiasis of the skin. 3. Drug rash. 4. Dermatitis. 5. History of seizure disorder. 6. Hypertension leading to hypotension. 7. Debility. 8. Leukocytosis, which is down. 9. History of atrial fibrillation. PLAN: 1. Continue with current dose of Cleocin and Diflucan. 2. As far as her debility, the patient has chosen to go to SNF or rehabilitation place, which should be optimum for her. 3. Continue on all home medications. The patient will be discharged on Cleocin and Diflucan p.o. Further recommendation per clinical course. With her continuous ongoing comorbidities, the patient is again better off SNF, for further information, look into the chart. The patient will be followed up by our nurse practitioner at [facility] [place]. MD CHRIS Stephenson/SHAYLAL /[id number]
[2019-08-22] MEDS: METOPROLOL TARTRATE 50 MG TAB PO SCH (09:00)
[2019-08-22] MEDS: DEPAKOTE DELAYED-RELEASE TAB 500 MG PO SCH ×2 (09:01→17:18)
[2019-08-22] MEDS: HYDROXYZINE HCL 25 MG TAB PO PRN (09:01)
[2019-08-22] MEDS: NYSTATIN 15 GM POWDER UD BTL TOP SCH (09:02)
[2019-08-22] MEDS: LEVOTHYROXINE SODIUM 112 MCG TAB PO SCH (09:02)
[2019-08-22] MEDS: RIVAROXABAN 20 MG TABLET PO SCH (09:02)
[2019-08-22] MEDS: DIGOXIN 0.125 MG TAB PO SCH (09:02)
--- NOTE | 2019-08-22 10:25 | Progress Note ---
DATE: SUBJECTIVE: Ms. Infante is a pleasant 58-year-old female, comfortable in bed, in no acute distress. ID was consulted for skin rash. REVIEW OF SYSTEMS: No nausea, no vomiting, no fever, no chills. No chest pain. No shortness of breath. Itching has improved and she think she has just overall general itching nothing as it is used to be. OBJECTIVE: VITAL SIGNS: Temperature 97.6, pulse 84, respiration 20, and blood pressure 105/61. MEDICATIONS: Medications reviewed. As far as Infectious Disease point of view, the patient is on clindamycin and Diflucan. No complications with antibiotic for antifungal at this point. Denied nausea, vomiting, or diarrhea. LABORATORY STUDIES: White blood cells 4.76, hemoglobin 12.6, and platelet 186. Sodium 138, potassium 4.9, creatinine 0.74. MICROBIOLOGY: Blood culture negative on 08/17/2019. RADIOLOGY: No new radiology studies available. PHYSICAL EXAMINATION: GENERAL: Alert and oriented, in no acute distress. Rash, significant improvement. CVS: S1, S2. CHEST: Equal expansion, clear to auscultation. No acute distress. ABDOMEN: Soft, morbidly obese. No tenderness. No distention. HEENT: Moist. No pallor. No JVD. EXTREMITIES: With edema and morbid obesity. Very weak overall. ASSESSMENT AND PLAN: 1. Dermatitis. 2. Drug rash. 3. Morbid obesity. 4. Debility. 5. Hypertension. 6. Hypothyroidism. 7. Status post leukocytosis. 8. No complications with antibiotics and antifungal. 9. Possibly to SNF. Currently, monitor the patient clinically, follow up with the labs. Reviewed Dr. Fuller's note, plan is to give the patient option for SNF versus rehabilitation facility. Further management of this patient is based on daily findings on laboratory and physical examination. Discussed with Dr. Leos in details. Please refer to chart for more information. MD YOSEPH Campo/SCOTT /[id number]
--- NOTE | 2019-08-22 10:57 | NUR ---
PATENT C/O ITCHING, PRN MEDICATION GIVEN. NO MORE C/O ITCHING AT THIS TIME.
[2019-08-22] MEDS: FLUCONAZOLE 100 MG TAB PO SCH (11:35)
[2019-08-22 12:00] VITALS: BP 108/62
--- NOTE | 2019-08-22 12:47 | NUR ---
ROOM CHANGED TO 406B AT [facility]. PT CAN TRANSFER AFTER 3:30PM. CÉSAR BRUNNER WAS NOTIFIED. RTF UPDATED WITH NEW ROOM NUMBER
--- NOTE | 2019-08-22 15:17 | NUR ---
COMPLETE BED BATH GIVEN, PATIENT REPOSITIONED IN BED. CALL LIGHT AT REACH.
[2019-08-22 16:00] VITALS: BP 103/54
--- NOTE | 2019-08-22 17:45 | NUR ---
PATIENT TRANSFERRED TO SNF. REPORT CALLED AND GIVEN TO RECEIVING NURSE. PICC LINE TO LEFT UPPER ARM INTACT AND PATENT. ALL PERSONAL ITEMS TAKEN WITH PATIENT. FAMILY MEMBER NOTIFIED AT [phone]. LEFT UNIT ON STRETCHER PER AMBULANCE IN STABLE CONDITION.
== END 2019-08-22 17:36 | DRG 603 ==
LOC: ER 15:07 → ERHOLD 19:53 → MED/SURG2 22:02
PROVIDERS: ADMIT Family Medicine; ATTEND Family Medicine
PROC: 02HV33Z Insertion of Infusion Device into Superior Vena Cava, Percutaneous Approach (ICD-10-PCS; principal; 2019-08-18)
PROC: B548ZZA Ultrasonography of Superior Vena Cava, Guidance (ICD-10-PCS; 2019-08-18)
DX: L03.314 Cellulitis of groin (principal); N17.9 Acute kidney failure, unspecified; Z68.43 Body mass index [BMI] 50.0-59.9, adult; L03.311 Cellulitis of abdominal wall; L03.312 Cellulitis of back [any part except buttock and flank]; L50.1 Idiopathic urticaria; E11.9 Type 2 diabetes mellitus without complications; E66.01 Morbid (severe) obesity due to excess calories; G40.909 Epilepsy, unspecified, not intractable, without status epilepticus; E23.6 Other disorders of pituitary gland; I48.91 Unspecified atrial fibrillation; Z86.718 Personal history of other venous thrombosis and embolism; Z79.01 Long term (current) use of anticoagulants; Z88.0 Allergy status to penicillin; I10 Essential (primary) hypertension; E03.9 Hypothyroidism, unspecified; B37.2 Candidiasis of skin and nail; Z79.4 Long term (current) use of insulin
CPT/HCPCS: 36415; 36569; 80048; 80053; 80202; 82948; 85025; 87040; 96372; 97139; 99251; 99284; J0692; J1450; J1817; J3370; J3410; J7040; J7050; Q0162